=== PATIENT | male | born 1955 | race Caucasian/White ===

== ENCOUNTER 2019-11-28 07:37 | Outpatient (CLI) | payer OTHER, SELFPAY ==
--- NOTE | 2019-11-28 08:00 | CT_ITS ---
WS: [id number] CT scan of the abdominal aorta and arteries of the lower extremities.. Additional two-dimensional cor onal and sagittal reconstruction was performed. MIP images were also performed. 11/28/2019 Clinical Data: PVD bilateral lower extremities/AAA Comparison: None. DLP: 3977.[address] scans at [facility] use at least one of these dose optimization techniques: automat ed exposure control; mA and/or kV adjustment per patient size (includes targeted exams where dose is matched to clinical indication); or iterative reconstruction. Findings: The abdominal aorta is completely obstructed in its midportion just below the level of the renal pina coni. The superior mesenteric and celiac arteries show flow and then there is collateral circulation via mesenteric arteries and small arteries of the anterior abdomen. The common femoral arteries fill via collateral circulation from a small arteries of the anterior abdomen. There is an abdominal aorti c aneurysm measuring 3.22 cm but there is complete thrombus throughout the aneurysm with no flow. The superficial femoral arteries are small and there is severe stenosis in their mid portions. Then veronika ateral circulation fills the distal superficial femoral arteries, popliteal arteries and arteries of the trifurcation. The leg arteries show flow down to the level of the feet. CT abdomen and pelvis: The lower lungs show no nodules, masses or effusions. The liver, spleen, gallbladder, pancreas and ad renal glands show no abnormalities. Kidneys show good circulation with no cysts, masses, hydronephros is or renal calculi. The stomach, small bowel and colon show no abnormalities. No appendicitis or div erticulitis is seen. No abscess, adenopathy, ascites, mass, obstruction or free air is seen. The blad john fills well. The prostate is enlarged. No inguinal hernia is seen. Degenerative change and osteopo rosis of all the lumbar vertebral bodies is noted. There is degenerative disc narrowing at L4-L5. CT/CT angio abd aorta runof 40111 Impression: 1. Complete obstruction of the abdominal aorta below the level of the renal art eries. 2. Collateral circulation via the superior mesenteric artery and the celiac art radha via mesenteric arteries and arteries of the anterior abdominal wall reconst itute the flow into the common femoral arteries. 3. Peripheral vascular disease with narrowing of the midportion of the superfic ial femoral arteries and reconstitution of flow via collateral circulation in t he thigh from the distal superficial femoral arteries, popliteal arteries and a rteries of the trifurcation. 4. Abdominal aortic aneurysm measuring 3.22 cm.
[2019-11-28 08:34] LABS: Blood Urea Nitrogen 16 mg/dL (8-23); Glomerular Filtration Rate 75.5 mL/min (90-130)
[2019-11-28] MEDS: iohexol 350 mg/mL 100 mL Btl IV (08:57)
== END 2019-11-28 07:38 | disposition home or self-care (01) ==
PROVIDERS: Family Provider Emergency Medicine Emergency Medical Services; PCP Emergency Medicine Emergency Medical Services; Visit Provider Internal Medicine Cardiovascular Disease
DX: I73.9 Peripheral vascular disease, unspecified (principal); I71.4 Abdominal aortic aneurysm, without rupture
CPT/HCPCS: 75635; 82565; 84520

== ENCOUNTER 2022-03-10 06:34 | Day surgery (SDC) | payer OTHER, SELFPAY ==
[2022-03-06 10:42] VITALS: BMI 31.1
[2022-03-10 06:55] VITALS: BP 139/82; PULSE 83; RESP 18; TEMP 37.1; O2SAT 95
[2022-03-10] MEDS: sodium chloride 0.9% 1,000 ML 30 ML IV (07:08)
--- NOTE | 2022-03-10 07:38 | P.HP_ITS ---
Same Day Surgery H&P Indication for Procedure/HPI DATE OF PROCEDURE: March 10, 2022 CHIEF COMPLAINT/INDICATIONFOR SURGICAL PROCEDURE: Screening PREOP DIAGNOSIS: Screening PLANNED PROCEDURE: Operation Date: 03/10/22 08:15 Proposed Procedures p Colonoscopy 33306,Z12.11(Not Applicable) - Kyle Escobar MD Medications/Allergies* Home Medications Medication Instructions Recorded Confirmed Type aspirin 81 mg tablet,delayed 81 mg PO DAILY 11/16/19 03/10/22 History release (Adult Low Dose Aspirin) citalopram 40 mg tablet 20 mg PO DAILY 11/16/19 03/10/22 History cyanocobalamin (vitamin B-12) 1,000 mcg PO DAILY 02/20/22 03/10/22 History 1,000 mcg capsule ezetimibe 10 mg tablet 10 mg PO DAILY 02/20/22 03/10/22 History gabapentin 300 mg capsule 300 mg PO TID 02/20/22 03/10/22 History meloxicam 15 mg tablet 15 mg PO DAILY 02/20/22 03/10/22 History omega 5-bay-wef-fish oil 1,000 mg 1 cap PO BID 02/20/22 03/10/22 History (120 mg-180 mg) capsule (Fish Oil) rosuvastatin 40 mg tablet 40 mg PO DAILY 02/20/22 03/10/22 History cholecalciferol (vitamin D3) 50 50 mcg PO DAILY 03/06/22 03/10/22 History mcg (2,000 unit) tablet (Vitamin D3) furosemide 20 mg tablet (Lasix) 20 mg PO QAM 03/06/22 03/10/22 History potassium chloride 10 mEq 10 meq PO DAILY 03/06/22 03/10/22 History tablet,extended release Allergies/Adverse Reactions Allergy/AdvReac Type Severity Reaction Status Date / Time prazosin Allergy Unknown Unknown Verified 02/20/22 10:04 Current Medications: Generic Name Dose Route Start Last Admin Trade Name Freq PRN Reason Stop Dose Admin Sodium Chloride 1,000 mls @ 30 mls/hr 03/10/22 06:45 03/10/22 07:08 Sodium Chloride 0.9% IV 03/11/22 06:44 30 mls/hr .Q24H LEXIE Administration Pertinent History/Comorbid Conditions* Medical History (Updated 02/20/22 @ 10:33 by Kyle Escobar MD) AAA (abdominal aortic aneurysm) without rupture Lower extremity edema Osteoarthritis PVD (peripheral vascular disease) Family History (Updated 11/16/19 @ 15:48 by Lyndsey Wong RN) Diabetes Myocardial infarction Mother Social History Smoking and tobacco status: current every day smoker cigarettes History of recent travel: No Pertinent Exam Findings alert, oriented x 3, clear to auscultation bilaterally, regular rate & rhythm, operative site marked and procedure specific exam findings Recommendations Surgery/Procedure today Coding Level of Care Code Acute Edging Machine Feeder for Omari Panchal
--- NOTE | 2022-03-10 08:00 | ANES.PREANE2 ---
Pre-Anesthetic Assessment Height/Weight: Height 1.88 m Weight 110.223 kg Temp Pulse Resp BP Pulse Ox 98.8 F 83 18 139/82 95 03/10/22 06:55 03/10/22 06:55 03/10/22 06:55 03/10/22 06:55 03/10/22 06:55 Preop Diagnosis: Screening Operation Date: 03/10/22 08:15 Proposed Procedures p Colonoscopy 07796,Z12.11(Not Applicable) - Kyle Escobar MD Familial anesthetic complications: None Last intake: Intake Last Liquid Date 03/09/22 Last Liquid Time 23:30 Last Solid Date 03/08/22 Last Solid Time 19:00 Social Tobacco and No alcohol Exam alert, oriented x 3 and regular rate & rhythm Airway Submandibular: within normal limits Cervical ROM: within normal limits Mallampati: Class II Dentition: full Pulmonary Chronic Obstructive Pulmonary Disease CV/HEM Peripheral Vascular Disease (AAA) Metabolic Morbid Obesity Anesthetic Plan ASA status: 3 Anesthesia: MAC Medications/Allergies Home Medications Medication Instructions Recorded Confirmed Last Taken Type aspirin 81 mg tablet,delayed 81 mg PO DAILY 11/16/19 03/10/22 03/09/22 08:00 History release (Adult Low Dose Aspirin) citalopram 40 mg tablet 20 mg PO DAILY 11/16/19 03/10/22 03/09/22 History cyanocobalamin (vitamin B-12) 1,000 mcg PO DAILY 02/20/22 03/10/22 03/09/22 History 1,000 mcg capsule ezetimibe 10 mg tablet 10 mg PO DAILY 02/20/22 03/10/22 03/09/22 History gabapentin 300 mg capsule 300 mg PO TID 02/20/22 03/10/22 03/09/22 History meloxicam 15 mg tablet 15 mg PO DAILY 02/20/22 03/10/22 03/09/22 History omega 8-nkk-yty-fish oil 1,000 mg 1 cap PO BID 02/20/22 03/10/22 03/09/22 History (120 mg-180 mg) capsule (Fish Oil) rosuvastatin 40 mg tablet 40 mg PO DAILY 02/20/22 03/10/22 03/09/22 History cholecalciferol (vitamin D3) 50 50 mcg PO DAILY 03/06/22 03/10/22 03/09/22 History mcg (2,000 unit) tablet (Vitamin D3) furosemide 20 mg tablet (Lasix) 20 mg PO QAM 03/06/22 03/10/22 03/09/22 History potassium chloride 10 mEq 10 meq PO DAILY 03/06/22 03/10/22 03/09/22 History tablet,extended release Allergies Allergy/AdvReac Type Severity Reaction Status Date / Time prazosin Allergy Unknown Unknown Verified 02/20/22 10:04 Current Medications Generic Name Dose Route Start Last Admin Trade Name Davidq PRN Reason Stop Dose Admin Sodium Chloride 1,000 mls @ 30 mls/hr 03/10/22 06:45 03/10/22 07:08 Sodium Chloride 0.9% IV 03/11/22 06:44 30 mls/hr .Q24H LEXIE Administration PFSH Anesthesia Medical History AAA (abdominal aortic aneurysm) without rupture Lower extremity edema Osteoarthritis PVD (peripheral vascular disease) Family History Mother Myocardial infarction Other Diabetes Social History Smoking and tobacco status: current every day smoker cigarettes History of recent travel: No Data Anesthesia Cardiac Studies: No Data to Display
[2022-03-10 08:51] VITALS: BP 131/81; PULSE 77; RESP 13; TEMP 36.4; O2SAT 94
[2022-03-10 09:01] VITALS: BP 123/73; PULSE 72; RESP 14; O2SAT 95
[2022-03-10 09:10] VITALS: BP 127/80; PULSE 75; RESP 16; O2SAT 94
--- NOTE | 2022-03-10 13:50 | ANE.PACU2 ---
Inpatient post-anesthesia follow up: Airway intact: Yes Vital signs: Temperature 97.5 F Pulse Rate 75 Respiratory Rate 16 Blood Pressure 127/80 Pulse Oximetry 94 Oxygen Delivery Me thod Room Air Oxygen Flow Rate 4 Fraction of Inspir ed Oxygen Hydration adequate: Yes Nausea and vomiting: No Pain level: 1 Mental status: Baseline
== END 2022-03-10 09:20 | disposition home or self-care (01) ==
PROVIDERS: PCP Emergency Medicine Emergency Medical Services; Visit Provider Internal Medicine
PROC: 0DJD8ZZ Inspection of Lower Intestinal Tract, Via Natural or Artificial Opening Endoscopic (ICD-10-PCS; CPT 45378; principal; 2022-03-10 08:15)
DX: Z12.11 Encounter for screening for malignant neoplasm of colon (principal); Z79.82 Long term (current) use of aspirin; M19.90 Unspecified osteoarthritis, unspecified site; F17.210 Nicotine dependence, cigarettes, uncomplicated; J44.9 Chronic obstructive pulmonary disease, unspecified; I73.9 Peripheral vascular disease, unspecified; E66.01 Morbid (severe) obesity due to excess calories; Z68.31 Body mass index [BMI] 31.0-31.9, adult
CPT/HCPCS: G0121; J2704; J7030

== ENCOUNTER → 2022-06-20 11:09 | Outpatient (BNVA) | payer OTHER, SELFPAY | PROVIDERS: PCP Emergency Medicine Emergency Medical Services; Visit Provider Internal Medicine Cardiovascular Disease | DX: R60.0 Localized edema (principal); I73.9 Peripheral vascular disease, unspecified; F17.210 Nicotine dependence, cigarettes, uncomplicated | CPT/HCPCS: 99213; 99214 ==

== ENCOUNTER 2022-07-02 15:39 | Outpatient (CLI) | payer OTHER, SELFPAY ==
--- NOTE | 2022-07-02 16:08 | CT_ITS ---
WS: [id number] CT CHEST WITH INTRAVENOUS CONTRAST HISTORY: PULMONARY NODULE TECHNIQUE: Contiguous 5 mm axial imaging performed on the thorax. Coronal and sagittal reformats are submitted. All CT scans at [facility] use at least one of these dose optimization techniques: automated exposure control; mA and/or kV adjustment per patient size (includes targeted exams where dose is matched to clinical indication); or iterative reconstruction. CONTRAST: Omnipaque 350; 95 mL IV. DLP: 839.62 mGy.cm COMPARISON: No similar studies. Lungs and central airway: 7 mm noncalcified nodule LEFT upper lobe abuts the superior major fissure. 9 mm pulmonary nodule LEFT upper lobe abuts the mid fissure. There is an additional 6 mm anterior LEF T upper lobe nodule abutting the pleura. Benign 8 mm granuloma RIGHT lower lobe. No pneumonia. Mild e mphysema. Pleura: Normal. No pleural effusion. Heart and pericardium: Normal size heart with no pericardial effusion. Mediastinum and cristobal: No mediastinum or hilar adenopathy. Vessels: Very mild atherosclerosis aorta. Normal size pulmonary artery. Atherosclerotic plaque in the proximal LEFT subclavian artery. At least 60% stenosis estimated. Chest wall and lower neck: No soft tissue masses. Upper abdomen: Small hiatal hernia. No adrenal mass. Osseous structures: Mild straightening of the normal lumbar lordosis. No osteoblastic or osteolytic b one disease. CT/CT chest w con* [id number] IMPRESSION: 1. LEFT upper lobe noncalcified pulmonary nodules. No prior studies are availa ble to evaluate for long-term stability or change. Recommend follow-up chest CT in 3 months. 2. No hilar adenopathy. 3. Proximal LEFT subclavian artery stenosis estimated at 60%. 4. Mild emphysema.
[2022-07-02 16:57] LABS: Blood Urea Nitrogen 12 mg/dL (8-23); Glomerular Filtration Rate 74.8 mL/min (90-130)
[2022-07-02] MEDS: iohexol 350 mg/mL 100 mL Btl IV (17:05)
== END 2022-07-02 15:40 | disposition home or self-care (01) ==
PROVIDERS: PCP Emergency Medicine Emergency Medical Services; Visit Provider Emergency Medicine Emergency Medical Services
DX: R91.8 Other nonspecific abnormal finding of lung field (principal); J43.9 Emphysema, unspecified
CPT/HCPCS: 71260; 82565; 84520

== ENCOUNTER 2022-08-20 08:17 | Outpatient (CLI) | payer OTHER, SELFPAY ==
--- NOTE | 2022-08-20 08:30 | USCV_ITS ---
John Duncan Age: 67 Gender: M : 1955 Exam Date: 08/20/2022 08:47 Ordering Phys: Trish Powers MD ([email or web address]) Technologist: Nghia Obrien Exam Location: [facility] [place] Indication: SOB BP: 140 / 86 HR: 73 Rhythm: Sinus Technical Quality: Adequate MEASUREMENTS (Male / Female) Normal Values 2D ECHO LV Diastolic Diameter PLAX 3.1 cm 4.2 - 5.9 / 3.9 - 5.3 cm LV Systolic Diameter PLAX 2.2 cm IVS Diastolic Thickness 1.2 cm 0.6 - 1.0 / 0.6 - 0.9 cm IVS Systolic Thickness 1.4 cm LVPW Diastolic Thickness 1.1 cm 0.6 - 1.0 / 0.6 - 0.9 cm LVPW Systolic Thickness 1.9 cm LVOT Diameter 2.0 cm LV Ejection Fraction 2D Teich 55.1 % LV Ejection Fraction MOD 2C 68.3 % LV Ejection Fraction 2C AL 68.0 % LA Diameter 3.3 cm LA Width 3.3 cm LA Height 4.6 cm RA Width 2.9 cm RA Height 4.4 cm Aorta at Sinotubular Diameter 3.0 cm IVC Diameter 2.0 cm M-MODE Aortic Annulus Diameter 3.7 cm LA Ao Ratio MM 1.0 MV E Point Septal Separation 0.7 cm DOPPLER AV Peak Velocity 132.7 cm/s LVOT Peak Velocity 119.0 cm/s AV Area Cont Eq vti 3.0 cm squared AV Area Cont Eq pk 2.8 cm squared MV Peak Velocity 123.0 cm/s MV Area PHT 5.9 cm squared Mitral E to A Ratio 0.8 MV E' Velocity 43.5 cm/s Mitral E to MV E' Ratio 8.7 Mitral E to LV E' Lateral Ratio 8.6 Mitral E to LV E' Septal Ratio 8.8 TR Peak Velocity 193.5 cm/s TR Peak Gradient 15.0 mmHg TR Mean Velocity 163.2 cm/s TR Mean Gradient 11.8 mmHg TR Velocity Time Integral 48.0 cm Right Atrial Pressure 3.0 mmHg Pulmonary Artery Systolic Pressu 18.0 mmHg PV Peak Velocity 98.0 cm/s RV Acceleration Time 0.1 s RV Ejection Time 0.3 s RV AcT/ET 0.3 FINDINGS Left Ventricle Normal left ventricular size and systolic function, EF 72 %. No regional wall motion abnormalities. Mild left ventricular hypertrophy. Grade I/IV diastolic dysfunction (abnormal relaxation filling pattern), normal to mildly elevated filling pressures. Right Ventricle The right ventricle is normal in size and function. Right Atrium The right atrium is normal in size. Left Atrium The left atrium is normal in size. Mitral Valve Trace mitral valve regurgitation. Aortic Valve No gross abnormalities noted Tricuspid Valve Trace tricuspid valve regurgitation. Pulmonic Valve Pulmonic valve not well visualized. Pericardium Normal pericardium without effusion. Aorta Normal ascending aorta dimension. IVC The inferior vena cava appears normal. CONCLUSIONS Normal left ventricular size and systolic function, EF 72 %. No regional wall motion abnormalities. Mild left ventricular hypertrophy. Grade I/IV diastolic dysfunction (abnormal relaxation filling pattern), normal to mildly elevated filling pressures. Trace tricuspid valve regurgitation. Estimated pulmonary artery peak systolic pressure within normal limits Trace mitral valve regurgitation. There is no pericardial effusion. There are no intracardiac masses. No similar previous studies are available for comparison Dr Madhu Barlow MD FACC (Electronically Signed) Final Date: 21 August 2022 08:19 S
== END 2022-08-20 08:18 | disposition home or self-care (01) ==
LOC: RAD 08:20
PROVIDERS: PCP Emergency Medicine Emergency Medical Services; Visit Provider Internal Medicine Cardiovascular Disease
DX: R06.02 Shortness of breath (principal); R07.9 Chest pain, unspecified; I08.1 Rheumatic disorders of both mitral and tricuspid valves
CPT/HCPCS: 93306

== ENCOUNTER 2022-10-10 14:47 | Outpatient (CLI) | payer OTHER, SELFPAY ==
--- NOTE | 2022-10-10 15:06 | CT_ITS ---
WS: [id number] CT CHEST WITH INTRAVENOUS CONTRAST HISTORY: 3 MONTH FOLLOW UP TECHNIQUE: Contiguous 5 mm axial imaging performed on the thorax. Coronal and sagittal reformats are submitted. All CT scans at [facility] use at least one of these dose optimization techniques: automated exposure control; mA and/or kV adjustment per patient size (includes targeted exams where dose is matched to clinical indication); or iterative reconstruction. CONTRAST: Omnipaque 350; 95 mL IV. DLP: 581.70 mGy.cm COMPARISON: 07/02/2022 Lungs and central airway: Increase in size of the soft tissue nodularity LEFT upper lobe abutting the fissure. This nodule now measures 15 x 11 mm and extends over a length of 27 mm. On the prior examin ation this nodule had a maximum diameter of 7 mm. The additional nodules in the LEFT upper lobe have resolved. Benign granuloma RIGHT lower lobe is stable. Single micronodule RIGHT lower lobe is stable. Pleura: Normal. No pleural effusion. Heart and pericardium: Normal size heart with no pericardial effusion. Mediastinum and cristobal: No mediastinum or hilar adenopathy. Vessels: Minimal atherosclerosis aorta. No aneurysm. Normal pulmonary artery. Chest wall and lower neck: No soft tissue masses. Upper abdomen: Visualized liver is negative. Normal adrenal glands. Osseous structures: Dorsal column stimulator electrodes in the midthoracic region. CT/CT chest w con* [id number] IMPRESSION: 1. Increase in size LEFT upper lobe pulmonary nodule now measuring 15 x 11 mm and extends over a length of 27 mm. This nodule needs to be evaluated for early pulmonary neoplasm. Recommend follow-up PET/CT imaging. Differential also incl udes inflammatory disease with adjacent atelectasis. 2. The additional previously described subcentimeter nodules in the LEFT lung have resolved. 3. No adenopathy. 4. Again noted is a proximal LEFT subclavian artery stenosis with focal ulcera gina plaque.
[2022-10-10] MEDS: iohexol 350 mg/mL 500 mL Btl (per mL) IV (15:43)
== END 2022-10-10 14:48 | disposition home or self-care (01) ==
PROVIDERS: PCP Emergency Medicine Emergency Medical Services; Visit Provider Emergency Medicine Emergency Medical Services
DX: Z01.89 Encounter for other specified special examinations (principal); R91.1 Solitary pulmonary nodule
CPT/HCPCS: 71260; Q9967

== ENCOUNTER → 2022-10-17 10:52 | Outpatient (BNVA) | payer OTHER, SELFPAY | PROVIDERS: PCP Emergency Medicine Emergency Medical Services; Visit Provider Internal Medicine Cardiovascular Disease | DX: R60.0 Localized edema (principal); I73.9 Peripheral vascular disease, unspecified; Z98.890 Other specified postprocedural states; F41.9 Anxiety disorder, unspecified; M19.90 Unspecified osteoarthritis, unspecified site; F17.210 Nicotine dependence, cigarettes, uncomplicated | CPT/HCPCS: 99214; Q3014 ==

== ENCOUNTER 2023-01-24 06:22 | Outpatient (CLI) | payer OTHER, SELFPAY ==
--- NOTE | 2023-01-24 | PETR_ITS ---
PROCEDURE INFORMATION: Exam: PET/CT Skull Base to Mid-thigh Exam date and time: 01/24/2023 12:01 PM Age: 67 years old Clinical indication: Abnormal findings on CT 10/10/22 (left upper lobe elongated opacity). LABS AND CLINICAL REPORTS: Glucose: 111 mg/dl Treatment strategy for malignancy (PET staging): Initial Staging (PI) TECHNIQUE: Imaging protocol: Following at least four-hour fasting and following the injection of radiopharmaceutical, low dose CT images were obtained. Then, PET images were obtained. Attenuation corrected images were constructed using the CT scan. Fused images of PET and CT were reviewed. The standardized uptake values (SUV) reported below are maximum values within a region of interest, expressed in gm/ml. Exam includes orbital meatal line to mid-thigh. Radiopharmaceutical: 13.48 mCi F-18 FDG (Fluorodeoxyglucose), IV. Time of imaging post radiopharmaceutical administration: 1 hour Injection site: Left antecubital vein COMPARISON: CT chest w con 10/10/2022 and 07/02/2022 FINDINGS: Brain: Visualized brain has normal physiologic uptake. Pharynx: No abnormal uptake. Larynx: No abnormal uptake. Lungs, pleura and trachea: No abnormal uptake. No suspicious nodules or masses. Elongated opacity posteriorly in the left upper lobe documented on 10/10/2022 has resolved compatible with benign finding of atelectasis. There is no residual nodule in the corresponding location of this opacity to correlate with the nodule documented on the older exam on 07/02/2022. There is stable 8 mm calcified granuloma in the right lower lobe. Minimal centrilobular emphysema in the upper lobes. no pleural effusion. Heart: Normal physiologic uptake. No cardiomegaly. Coronary artery calcification is present. There is no pericardial effusion. Mediastinal space: No abnormal uptake. Liver: No abnormal uptake. Gallbladder and bile ducts: No abnormal uptake. No calcified gallstones. Pancreas: No abnormal uptake. Spleen: No abnormal uptake. No splenomegaly. Adrenal glands: No abnormal uptake. No nodules. Kidneys and ureters: Normal physiologic uptake. No hydronephrosis. Stomach and bowel: No abnormal uptake. Vasculature: No abnormal uptake. Status post aortobifemoral bypass surgery. Lymph nodes: No abnormal uptake. No lymphadenopathy in the head, neck, chest, abdomen, pelvis, and extremities. Stable sequela of exposure to granulomatous disease with small calcified right subcarinal and right hilar lymph nodes. Bones/joints: No abnormal uptake in the visualized axial and appendicular skeleton. Soft tissues: Bilateral symmetric linear uptake in the deep fat planes in the suboccipital region and the upper posterior neck, in the upper back and in the medial intercostal/paravertebral fat at multiple levels is compatible with benign uptake in the brown fat. Focal soft tissue density in the umbilicus for clinical correlation with history of umbilical hernia repair. 2.3 cm subcutaneous cyst in the right upper back on image 25 represents benign finding (epidermal inclusion cyst or sebaceous cyst). Catheters, tubes and devices: There is intraspinal stimulation electrode placed via T11-T12 interspinous interval terminating within the central spinal canal in the epidural space at T7 level. PET/PET skulltothi INITIAL [id number] IMPRESSION: No evidence of malignancy. Linear opacity in the left upper lobe documented on prior CT chest on 10/10/2022 has resolved compatible with benign finding of atelectasis.
== END 2023-01-24 06:23 | disposition home or self-care (01) ==
LOC: RAD 01-26 06:22
PROVIDERS: PCP Emergency Medicine Emergency Medical Services; Visit Provider Emergency Medicine Emergency Medical Services
DX: R91.8 Other nonspecific abnormal finding of lung field (principal)
CPT/HCPCS: 78815; A9552

== ENCOUNTER → 2023-01-29 07:52 | Outpatient (BNVA) | payer OTHER, SELFPAY | PROVIDERS: PCP Emergency Medicine Emergency Medical Services; Visit Provider Podiatrist Foot & Ankle Surgery | DX: I73.9 Peripheral vascular disease, unspecified (principal); L60.8 Other nail disorders; Z98.62 Peripheral vascular angioplasty status; L60.3 Nail dystrophy | CPT/HCPCS: 11721; 93923; 99204 ==

== ENCOUNTER → 2023-03-19 08:50 | Outpatient (BNVA) | payer OTHER, SELFPAY | PROVIDERS: PCP Emergency Medicine Emergency Medical Services; Visit Provider Internal Medicine Pulmonary Disease | DX: R91.1 Solitary pulmonary nodule (principal); F17.210 Nicotine dependence, cigarettes, uncomplicated; J43.9 Emphysema, unspecified | CPT/HCPCS: 99204; 99214 ==

== ENCOUNTER → 2023-04-09 08:23 | Outpatient (BNVA) | payer OTHER, SELFPAY | PROVIDERS: PCP Emergency Medicine Emergency Medical Services; Visit Provider Podiatrist Foot & Ankle Surgery | DX: I73.9 Peripheral vascular disease, unspecified (principal); L60.8 Other nail disorders; L60.3 Nail dystrophy; Z98.62 Peripheral vascular angioplasty status | CPT/HCPCS: 11721 ==

== ENCOUNTER → 2023-04-17 10:20 | Outpatient (BNVA) | payer OTHER, SELFPAY | PROVIDERS: PCP Emergency Medicine Emergency Medical Services; Visit Provider Internal Medicine Cardiovascular Disease | DX: R60.0 Localized edema (principal); F17.210 Nicotine dependence, cigarettes, uncomplicated | CPT/HCPCS: 99214 ==

== ENCOUNTER → 2023-05-20 10:58 | Outpatient (BNVA) | payer OTHER, SELFPAY | PROVIDERS: PCP Emergency Medicine Emergency Medical Services; Visit Provider Internal Medicine Pulmonary Disease | DX: R91.1 Solitary pulmonary nodule (principal); J43.9 Emphysema, unspecified | CPT/HCPCS: 99214 ==

== ENCOUNTER → 2023-06-11 15:19 | Outpatient (BNVA) | payer OTHER, SELFPAY | PROVIDERS: PCP Emergency Medicine Emergency Medical Services; Visit Provider Podiatrist Foot & Ankle Surgery | DX: L60.8 Other nail disorders (principal); I73.9 Peripheral vascular disease, unspecified; Z98.62 Peripheral vascular angioplasty status; L60.3 Nail dystrophy | CPT/HCPCS: 11721 ==

== ENCOUNTER → 2023-09-08 07:52 | Outpatient (BNVA) | payer OTHER, SELFPAY | PROVIDERS: PCP Emergency Medicine Emergency Medical Services; Visit Provider Podiatrist Foot & Ankle Surgery | DX: I73.9 Peripheral vascular disease, unspecified (principal); L60.8 Other nail disorders; Z98.62 Peripheral vascular angioplasty status; L60.3 Nail dystrophy | CPT/HCPCS: 11721 ==

== ENCOUNTER 2023-12-28 11:45 | Outpatient (RCR) | payer OTHER, SELFPAY | END 2024-01-26 23:59 | disposition home or self-care (01) | LOC: CR 11:45 | PROVIDERS: PCP Emergency Medicine Emergency Medical Services; Referring Provider Emergency Medicine Emergency Medical Services; Visit Provider Emergency Medicine Emergency Medical Services | DX: I73.9 Peripheral vascular disease, unspecified (principal) | CPT/HCPCS: 93798 ==

== ENCOUNTER → 2024-01-12 07:44 | Outpatient (BNVA) | payer OTHER, SELFPAY | PROVIDERS: PCP Emergency Medicine Emergency Medical Services; Visit Provider Podiatrist Foot & Ankle Surgery | DX: I73.9 Peripheral vascular disease, unspecified (principal); L60.8 Other nail disorders; Z98.62 Peripheral vascular angioplasty status; L60.3 Nail dystrophy | CPT/HCPCS: 11721 ==

== ENCOUNTER 2024-01-27 10:25 | Outpatient (RCR) | payer OTHER, SELFPAY | END 2024-02-26 23:59 | disposition home or self-care (01) | LOC: CR 10:25 | PROVIDERS: PCP Emergency Medicine Emergency Medical Services; Referring Provider Emergency Medicine Emergency Medical Services; Visit Provider Emergency Medicine Emergency Medical Services | DX: I73.9 Peripheral vascular disease, unspecified (principal) | CPT/HCPCS: 93798 ==

== ENCOUNTER → 2024-02-17 10:55 | Outpatient (BNVA) | payer OTHER, SELFPAY | PROVIDERS: PCP Emergency Medicine Emergency Medical Services; Visit Provider Surgery | DX: L72.0 Epidermal cyst (principal) | CPT/HCPCS: 99203 ==

== ENCOUNTER 2024-02-29 08:52 | Outpatient (RCR) | payer OTHER, SELFPAY | END 2024-03-27 23:59 | disposition home or self-care (01) | LOC: CR 08:52 | PROVIDERS: PCP Emergency Medicine Emergency Medical Services; Referring Provider Emergency Medicine Emergency Medical Services; Visit Provider Emergency Medicine Emergency Medical Services | DX: I73.9 Peripheral vascular disease, unspecified (principal) | CPT/HCPCS: 93798 ==

== ENCOUNTER 2024-03-14 05:33 | Day surgery (SDC) | payer OTHER, SELFPAY ==
[2024-03-14] VITALS (11 sets, daily range): BP systolic 128–166; BP diastolic 73–93; PULSE 61–78; RESP 14–21; TEMP 36.1–36.4; O2SAT 91–95; BMI 29.4
--- NOTE | 2024-03-14 05:39 | P.HPUD_ITS ---
Surgery/Procedure H&P Update DATE OF PROCEDURE: March 14, 2024 DATE H&P PERFORMED: 01/27/22 H&P UPDATE INFORMATION: I have reviewed H&P completed within last 30 days, I have examined patient prior to procedure, No changes to prior documentation and H&P is in [facility] [place] on date indicated PLANNED PROCEDURE: Operation Date: 03/14/24 07:00 Proposed Procedures p Excision Mass/Lesion/Cyst Upper Torso/ excision upper back mass 18813, L72.0(Not Applicable) - Francisco Moulton MD
--- NOTE | 2024-03-14 06:13 | ECG_ITS ---
[facility] Test Date: 2024-03-14 Pat Name: John Duncan Department: Room: Gender: Male Rn Clinical Trials: : 1955 Requested By: Francisco Cooper Order Number: [id number] Sage MD: Gregory Nj M.D. Measurements Intervals [place] Rate: 59 P: 70 NJ: 162 QRS: 30 QRSD: 106 T: 73 QT: 399 QTc: 398 Interpretive Statements SINUS BRADYCARDIA INCOMPLETE RIGHT BUNDLE BRANCH BLOCK [90+ ms QRS DURATION, TERMINAL R IN V1/V2, 40+ ms S IN I/aVL/V4/V5/V6] No previous ECG available for comparison Electronically Signed On 03-14-2024 8:31:02 CDT by Gregory Nj M.D. [id number]
[2024-03-14] MEDS: sodium chloride 0.9% 1,000 ML 30 ML IV (06:51)
[2024-03-14 06:57] LABS: Anion Gap 15.6 (5-19); Blood Urea Nitrogen 29 mg/dL (8-23); Calcium 9.4 mg/dL (8.5-10.5); Carbon Dioxide 26 mmol/L (22-29); Chloride 104 mmol/L (98-107); Creatinine Clr Calc Pharmacy 102.3681; Glomerular Filtration Rate 84.2 mL/min (90-130); Glucose 111 mg/dL (65-115); Osmolality Calculated 299 mOsm/kg (285-295); Potassium 4.6 mmol/L (3.5-5.1); Sodium 141 mmol/L (136-145)
[2024-03-14] MEDS: ceFAZolin 2,000 MG in sodium chloride 0.9% (plus) 50 ML 100 MG IV (07:05)
--- NOTE | 2024-03-14 07:07 | P.ANESASSM_ITS ---
Pre-Anesthetic Assessment Height/Weight: Height 1.88 m Weight 103.873 kg O2 Del Method Room Air 03/14/24 06:05 Operation Date: 03/14/24 07:00 Proposed Procedures p Excision Mass/Lesion/Cyst Upper Torso/ excision upper back mass 19298, L72.0(Not Applicable) - Francisco Moulton MD Familial anesthetic complications: None Was Beta Andi taken within 24 hours: N/A Was Clonidine taken within 24 hours: N/A Last intake: Intake Last Liquid Date 03/13/24 Last Liquid Time 20:50 Last Solid Date 03/13/24 Last Solid Time 18:00 Social Tobacco and No alcohol Exam alert, oriented x 3, clear to auscultation bilaterally and regular rate & rhythm Airway Mallampati: Class III Dentition: caps and partials Pulmonary Chronic Obstructive Pulmonary Disease CV/HEM Peripheral Vascular Disease AAA s/p repair Metabolic Hyperlipidemia Anesthetic Plan ASA status: 3 Anesthesia: General Risk of > 500 ml blood loss (7ml/kg in children): No Medications/Allergies Home Medications Medication Instructions Recorded Confirmed Last Taken Type aspirin 81 mg tablet,delayed 81 mg PO DAILY 11/16/19 03/14/24 03/11/24 History release (Adult Low Dose Aspirin) citalopram 40 mg tablet 20 mg PO DAILY 11/16/19 03/14/24 03/11/24 History cyanocobalamin (vitamin B-12) 1,000 mcg PO DAILY 02/20/22 03/14/24 03/11/24 History 1,000 mcg capsule ezetimibe 10 mg tablet 10 mg PO DAILY 02/20/22 03/14/24 03/11/24 History gabapentin 300 mg capsule 300 mg PO TID 02/20/22 03/14/24 03/11/24 History meloxicam 15 mg tablet 15 mg PO DAILY 02/20/22 03/14/24 03/11/24 History omega 9-div-rnd-fish oil 1,000 mg 1 cap PO BID 02/20/22 03/14/24 03/11/24 History (120 mg-180 mg) capsule (Fish Oil) cholecalciferol (vitamin D3) 50 50 mcg PO DAILY 03/06/22 03/14/24 03/11/24 History mcg (2,000 unit) tablet (Vitamin D3) omeprazole 40 mg capsule,delayed 40 mg PO BID 06/20/22 03/14/24 03/11/24 History release ropinirole 0.5 mg tablet 0.5 mg PO TID 06/20/22 03/14/24 03/10/24 History furosemide 20 mg tablet (Lasix) 20 mg PO QAM #90 tabs 08/26/22 03/14/24 03/11/24 Rx potassium chloride 10 mEq 10 meq PO DAILY #90 tabs 08/26/22 03/14/24 03/11/24 Rx tablet,extended release urea 40 % topical cream 1 applic topical TID #198 grams 01/29/23 03/14/24 03/07/24 Rx tiotropium bromide 18 mcg capsule 1 cap inhalation DAILY #60 03/19/23 03/14/24 03/11/24 Rx with inhalation device (Spiriva inhalations with HandiHaler) rosuvastatin 40 mg tablet 40 mg PO DAILY #90 tabs 11/04/23 03/14/24 03/10/24 Rx Allergies Allergy/AdvReac Type Severity Reaction Status Date / Time prazosin Allergy Unknown Unknown Verified 02/17/24 11:00 Current Medications Generic Name Dose Route Start Last Admin Trade Name Freq PRN Reason Stop Dose Admin Sodium Chloride 1,000 mls @ 30 mls/hr 03/14/24 06:45 03/14/24 06:51 Sodium Chloride 0.9% IV 03/15/24 06:44 30 mls/hr .Q24H LEXIE Administration PFSH Anesthesia Medical History Anxiety History of traumatic brain injury PTSD (post-traumatic stress disorder) RLS (restless legs syndrome) Lower extremity edema Osteoarthritis AAA (abdominal aortic aneurysm) without rupture PVD (peripheral vascular disease) Surgical History S/P cervical spinal fusion S/P hernia repair S/P aorta repair S/P insertion of spinal cord stimulator Family History Mother Myocardial infarction Other Diabetes Social History Smoking and tobacco/nicotine status: current every day tobacco/nicotine user cigarettes Data Anesthesia 03/14/24 06:18 BMP 03/14/24 06:18 Sodium 141 Potassium 4.6 Chloride 104 Carbon Dioxide 26 BUN 29 H Creatinine 0.9 Glucose 111 Calcium 9.4 Cardiac Studies: 2 Echocardiogram 08/20/22
[2024-03-14] MEDS: BUPivacaine 0.25% INJ 30 mL INJECTION (07:30)
[2024-03-14] MEDS: lidocaine-epi 1% 20 mL INJ INJECTION (07:30)
--- NOTE | 2024-03-14 08:08 | PM.OP ---
Operative Report Date of procedure: March 14, 2024 Pre-op diagnosis: Right upper back mass Post-op diagnosis: Same Post-op findings: There was a subcutaneous right upper back mass measuring about 3.5 cm x 3 cm x 2 cm Procedure done: Excision of right upper back mass Surgeon: Francisco Moulton MD Front Office Administrator: JEFFREY OR Staff Estimated blood loss: 5 Complications: None apparent Brief History: This a 68-year-old male with right upper back mass who presented to my clinic for excision. After discussion of the risk and benefits as documented my preop note we decided to proceed. Procedure: Patient was brought into the OR. General anesthesia was given. He was placed in a left lateral position. The right upper back was prepped and draped in the usual sterile fashion. Timeout was conducted. Local anesthesia was infiltrated around the mass. An elliptical incision measuring about 4.5 cm was made in the area of the mass. The incision was deepened to subcutaneous tissue with a blade, I then proceeded to circumferentially dissect the mass from the subcutaneous tissue with sharp dissection, taking careful consideration of not entering the capsule of the lesion. The mass was completely excised and sent to pathology. Hemostasis was achieved, the wound was irrigated with saline. The wound was then closed in layers using #2-0 Vicryl for the deep tissue, #3-0 Vicryl for the subcutaneous tissue and #3-0 nylon for the skin. Sterile dressing was then applied. A compressive dressing was applied on top. At the end of the procedure all counts were correct, the patient tolerated well the procedure and was transferred to the PACU in stable condition.
--- NOTE | 2024-03-14 09:10 | ANE.PACU2 ---
Inpatient post-anesthesia follow up: Airway intact: Yes Vital signs: Temperature 97 F Pulse Rate 63 Respiratory Rate 18 Blood Pressure 144/80 Pulse Oximetry 95 Oxygen Delivery Me thod Room Air Oxygen Flow Rate Fraction of Inspir ed Oxygen Hydration adequate: Yes Nausea and vomiting: No Pain level: 1 Mental status: Baseline
== END 2024-03-14 09:10 | disposition home or self-care (01) ==
PROVIDERS: PCP Emergency Medicine Emergency Medical Services; Visit Provider Surgery
PROC: (CPT 11404; principal; 2024-03-14 07:00)
DX: L72.0 Epidermal cyst (principal); J44.9 Chronic obstructive pulmonary disease, unspecified; E78.5 Hyperlipidemia, unspecified; Z79.82 Long term (current) use of aspirin; F41.9 Anxiety disorder, unspecified; Z87.820 Personal history of traumatic brain injury; M19.90 Unspecified osteoarthritis, unspecified site; F17.210 Nicotine dependence, cigarettes, uncomplicated
CPT/HCPCS: 11404; 12032; 36415; 80048; 88307; 93005; J0690; J1100; J2371; J2405; J2704; J3010; J3490; J7030

== ENCOUNTER 2024-03-21 09:35 | Outpatient (CLI) | payer OTHER, SELFPAY ==
--- NOTE | 2024-03-21 09:38 | US_ITS ---
WS: [id number] Exam: US pelvic limited [id number] Date/Time of Exam: 03/21/2024 9:41 AM Reason For Exam: L GROIN SWELLING W/ENLARGED LYMPHNODE The LEFT inguinal region is targeted for ultrasound evaluation. There are several fatty replaced lymp h nodes noted in the LEFT inguinal region. The largest node measures about 1.1 cm in greatest short a xis dimension. A single subcentimeter short axis lymph node seen in the RIGHT inguinal region. Recommendations: If the patient does not respond to conservative management, further evaluation with pet imaging might be considered to identify any abnormal metabolic activity in these areas. US/US pelvic limited [id number] IMPRESSION: 1. Several fatty replaced lymph nodes noted in the LEFT inguinal region. The la rgest node measures about 1.1 cm greatest short axis dimension. These nodes do not have suspicious appearance. 2. Single subcentimeter short axis lymph node seen in the RIGHT inguinal region .
== END 2024-03-21 09:36 | disposition home or self-care (01) ==
PROVIDERS: PCP Family Medicine; Visit Provider Family Medicine
DX: R59.0 Localized enlarged lymph nodes (principal)
CPT/HCPCS: 76857

== ENCOUNTER 2024-03-28 14:49 | Outpatient (RCR) | payer OTHER, SELFPAY | END 2024-04-27 23:59 | disposition home or self-care (01) | LOC: CR 14:49 | PROVIDERS: PCP Family Medicine; Referring Provider Emergency Medicine Emergency Medical Services; Visit Provider Emergency Medicine Emergency Medical Services | DX: I73.9 Peripheral vascular disease, unspecified (principal) | CPT/HCPCS: 93798 ==

== ENCOUNTER → 2024-04-06 08:59 | Outpatient (BNVA) | payer OTHER, SELFPAY | PROVIDERS: PCP Family Medicine; Visit Provider Surgery | DX: Z98.890 Other specified postprocedural states (principal) | CPT/HCPCS: 99024 ==

== ENCOUNTER 2024-05-03 16:09 | Outpatient (RCR) | payer OTHER, SELFPAY | END 2024-05-28 23:59 | disposition home or self-care (01) | LOC: CR 16:09 | PROVIDERS: PCP Family Medicine; Referring Provider Emergency Medicine Emergency Medical Services; Visit Provider Emergency Medicine Emergency Medical Services | DX: I73.9 Peripheral vascular disease, unspecified (principal) | CPT/HCPCS: 93798 ==

== ENCOUNTER → 2024-05-10 07:45 | Outpatient (BNVA) | payer OTHER, SELFPAY | PROVIDERS: PCP Family Medicine; Visit Provider Podiatrist Foot & Ankle Surgery | DX: I73.9 Peripheral vascular disease, unspecified (principal); L60.8 Other nail disorders; Z98.62 Peripheral vascular angioplasty status; L60.3 Nail dystrophy | CPT/HCPCS: 11721 ==

== ENCOUNTER 2024-05-29 10:22 | Outpatient (RCR) | payer OTHER, SELFPAY | END 2024-06-27 23:59 | disposition home or self-care (01) | LOC: CR 10:22 | PROVIDERS: PCP Family Medicine; Referring Provider Emergency Medicine Emergency Medical Services; Visit Provider Emergency Medicine Emergency Medical Services | DX: I73.9 Peripheral vascular disease, unspecified (principal) | CPT/HCPCS: 93798 ==

== ENCOUNTER 2024-06-28 12:11 | Outpatient (RCR) | payer OTHER, SELFPAY | END 2024-07-28 23:59 | disposition home or self-care (01) | LOC: CR 12:11 | PROVIDERS: PCP Family Medicine; Referring Provider Emergency Medicine Emergency Medical Services; Visit Provider Emergency Medicine Emergency Medical Services | DX: I73.9 Peripheral vascular disease, unspecified (principal) | CPT/HCPCS: 93798 ==

== ENCOUNTER → 2024-07-26 07:37 | Outpatient (BNVA) | payer OTHER, SELFPAY | PROVIDERS: PCP Family Medicine; Visit Provider Podiatrist Foot & Ankle Surgery | DX: I73.9 Peripheral vascular disease, unspecified (principal); L60.8 Other nail disorders; Z98.62 Peripheral vascular angioplasty status; L60.3 Nail dystrophy | CPT/HCPCS: 11721 ==

== ENCOUNTER → 2024-10-10 07:51 | Outpatient (BNVA) | payer OTHER, SELFPAY | PROVIDERS: PCP Family Medicine; Visit Provider Podiatrist Foot & Ankle Surgery | DX: L60.8 Other nail disorders (principal); I73.9 Peripheral vascular disease, unspecified; Z98.62 Peripheral vascular angioplasty status; L60.3 Nail dystrophy | CPT/HCPCS: 11721 ==

== ENCOUNTER → 2025-01-09 08:27 | Outpatient (BNVA) | payer OTHER, SELFPAY | PROVIDERS: PCP Family Medicine; Visit Provider Podiatrist Foot & Ankle Surgery | DX: I73.9 Peripheral vascular disease, unspecified (principal); L60.8 Other nail disorders; L60.3 Nail dystrophy; Z98.62 Peripheral vascular angioplasty status | CPT/HCPCS: 11721 ==

== ENCOUNTER → 2025-02-07 09:21 | Outpatient (BNVA) | payer OTHER, SELFPAY | PROVIDERS: PCP Family Medicine; Visit Provider Psychiatry & Neurology Neurology | DX: G56.03 Carpal tunnel syndrome, bilateral upper limbs (principal); G62.9 Polyneuropathy, unspecified; G56.21 Lesion of ulnar nerve, right upper limb | CPT/HCPCS: 95913 ==

== ENCOUNTER → 2025-02-28 07:53 | Outpatient (BNVA) | payer OTHER, SELFPAY | PROVIDERS: PCP Family Medicine; Visit Provider Physician Assistant | DX: G56.03 Carpal tunnel syndrome, bilateral upper limbs (principal); G56.23 Lesion of ulnar nerve, bilateral upper limbs | CPT/HCPCS: 73130; 99204 ==

== ENCOUNTER 2025-03-31 14:56 | Emergency (ER) | payer OTHER, MEDICARE, SELFPAY ==
--- OUTSIDE RECORDS SUMMARY | 2025-03-31 15:02 | XMS_ITS | Clinical Summary ---
Author Organization [facility] Address [address] [place] [address] Phone Care Team Providers Care Vp Marketing Name Role Phone George Childress MD Primary Care Provider Allergies Active Allergy Reactions Criticality Noted Date Comments Prazosin Syncope Medium 04/08/2012 Medications aspirin (ECOTRIN EC) 81 mg Tablet, Delayed Release (E.C.) Take 81 mg by mouth daily. Active rosuvastatin (CRESTOR) 40 mg tablet Take 40 mg by mouth daily at bedtime. Active omeprazole (PriLOSEC) 40 mg Capsule, Delayed Release(E.C.) Take 40 mg by mouth daily. Active cholecalcifero l, vitamin D3, 1,000 unit Take 1,000 Units by mouth daily. Active gabapentin (NEURONTIN) 300 mg capsule Take 1 Capsule (300 mg) by mouth 3 times daily. 90 Capsule 3 0 Active furosemide (LASIX) 20 mg tablet Take 1 Tablet by mouth daily. 0 Active potassium chloride (KLOR-CON) 10 mEq Extended Release tablet Take 10 mEq by mouth daily with breakfast. 0 Active Luxor-3 Fatty Acids (Fish Oil Concentrate) 1,000 mg Capsule Take 1,000 mg by mouth 2 times daily. 1 capsule twice a day to lower triglycerides Active sennosides (SENOKOT) 8.6 mg tablet Take 8.6 mg by mouth daily. 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 with rest pain 01/03/2020 Renal artery stenosis 01/03/2020 Superficial femoral artery occlusion 01/03/2020 Popliteal artery aneurysm, bilateral 01/03/2020 H/O back injury in [place] 01/03/2020 Neuropathy 01/03/2020 Seroma, post-traumatic Resolved Problems Problem Noted Date Diagnosed Date Resolved Date Cellulitis 05/11/2020 07/17/2020 AAA (abdominal aortic aneury sm) without rupture 01/03/2020 07/17/2020 Chronic distal aortic occlusion 01/03/2020 07/17/2020 Family History Medical History Relation Name Comments No Known Problems Brother Cancer Daughter No Known Problems Father No Known Problems Maternal Grandfather No Known Problems Maternal Grandmother Cancer Mother No Known Problems Paternal Grandfather No Known Problems Paternal Grandmother No Known Problems Son Relation Name Status Comments Brother Daughter Father Maternal Grandfather Maternal Grandmother Mother Paternal Grandfather Paternal Grandmother Son Social History Tobacco Use Types Packs/Day Years Used Date Smoking Tobacco: Former Cigarettes Q uit: 01/08/2020 Smokeless Tobacco: Former Tobacco Cessation:Ready to Q uit: Yes Alcohol Use Standard Drinks/Week Comments Yes 0 (1 standard drink = 0.6 oz pur e alcohol) occ Sex and Gender Information Value Date Recorded Sex Assigned at Not on file Legal Sex Male 1:21 PM CDT Gender Identity Not on file Sexual Orientation Not on file Last Filed Vital Signs Vital Sign Reading Time Taken Comments Blood Pressure 144/90 03/12/2021 12:20 PM CDT Pulse 66 03/12/2021 12:20 PM CDT Temperature 36.9 C (98.4 F) 05/17/2020 11:21 AM CDT Respiratory Rate 20 06/15/2020 1:20 PM CDT Oxygen Saturation 94% 03/12/2021 12:20 PM CDT Inhaled Oxygen Concentration - - Weight 112.5 kg (248 lb) 03/12/2021 12:20 PM CDT Height 188 cm (6' 2 ) 03/12/2021 12:20 PM CDT Body Mass Index 31.84 03/12/2021 12:20 PM CDT Plan of Treatment Health Maintenance Due Date Last Done Comments COLORECTAL SCREENING 2001 Colorectal Cancer Screening 2001 FIT-DNA Q 3 years 2001 FIT/FOBT Q 1 year 2001 Flex Sig/CT Colonography Q 5 years 2001 ZOSTER VACCINE (1 of 2) 2006 PNEUMOCOCCAL VACCINE 50+ YEA RS (2 of 2 - PCV) 02/28/2016 02/27/2015 INFLUENZA VACCINE (#1) 2024 09/11/2017 DTAP/TDAP/TD VACCINES (2 - Td or Tdap) 03/12/2027, 2016 RSV VACCINE (60+ or ) (1 - 1-dose 75+ series) 2031 Medical Devices Implanted Type Area Tyre Retreader Device Identifier Shelf Expiration Date Model / Serial / Lot Clip Ligating Horizon Lg Ti [id number] - Csc - [id number] Implanted:12/27 by Yunier Hernández MD at [facility] (Quantity not on file) Clip N/A: Aorta TELEFLEX- WECK CLOSURE SYS [id number] 03/08/2024 [id number] / / [id number] Clip Ligating Horizon Med Ti 231854 - Csc - [id number] Implanted:12/27 by Yunier Hernández MD at [facility] (Quantity not on file) Clip N/A: Aorta TELEFLEX- WECK CLOSURE SYS [id number] 01/26/2024 [id number] / / [id number] Clip Ti Lrg 24838 - [id number] Implanted:12/27 by Yunier Hernández MD at [facility] (Quantity not on file) Clip N/A: Abdomen [employer] [id number] 10/29/2021 [id number] / / [id number] Clip Ligating Horizon Med Ti [id number] - Csc - [id number] Implanted:Qty: 1 on 05/13/2020 by Benji Rey MD at [facility] Clip Left: Groin TELEFLEX- WECK CLOSURE SYS [id number] 04/25/2024 [id number] / / [id number] Clip Ligating Horizon Med Ti [id number] - Csc - [id number] Implanted:Qty: 1 on 05/13/2020 by Benji Rey MD at [facility] Clip Left: Groin TELEFLEX- WECK CLOSURE SYS [id number] 04/25/2024 [id number] / / [id number] Hemostatic Surgifoam [id number] - [id number] Implanted:12/27 by Yunier Hernández MD at [facility] (Quantity not on file) Hemostatic N/A: Groin [employer] [id number] 10/04/20231973 / [id number] Graft [place]mshld Gold Bifur [id number] - [id number] Implanted:12/27 by Yunier Hernández MD at [facility] (Quantity not on file) Tissue N/A: Aorta [employer] [id number] 07/28/2024 [id number] / / [id number] Insurance RX [employer] Member Subscriber Plan / Payer (Ef fective for All Dates) Name:John Duncan Relation to Subscriber:Self Name:John Duncan Payer ID:Not on file Type:RX Commercial Address: [address] * Guarantor: BRYAN ANTUNEZ L AND M Account Type Relation to Patient Date of Phone Billing Address Corporate Other [facility] [address] [employer] [address] FEE UNIT Advance Directives For more information, please contact: [phone] Documents on File Type Date Recorded Patient Marketing Liaison Expl anation Advance Directive POA 01/17/2020 11:53 AM Advance Directive POA Advance Directive POA 01/12/2020 12:51 PM * Full Code (Latest Code Status on File) Date Activated Date Inactivated Comments 05/13/2020 9:05 PM 05/17/2020 7:13 PM * Full Code Date Activated Date Inactivated Comments 05/11/2020 5:31 PM 05/13/2020 9:04 PM * Full Code Date Activated Date Inactivated Comments 01/09/2020 6:49 AM 01/09/2020 2:10 PM Care Teams Vp Marketing Relationship Specialty Start Date End Date George Childress MD PCP - General Emergency Medicine 06/14/19
--- OUTSIDE RECORDS SUMMARY | 2025-03-31 15:02 | XMS_ITS | Clinical Summary ---
Author Organization [facility] Address [address] [place] [address] Phone Care Team Providers Care Field Aide Name Role Phone George Childress MD Primary Care Provider Allergies Active Allergy Reactions Criticality Noted Date Comments Prazosin Syncope Medium 04/08/2012 Medications gabapentin (NEURONTIN) 300 mg capsule Take 1 Capsule (300 mg) by mouth 3 times daily. 90 Capsule 3 0 Active Burnett-3 Fatty Acids 1,000 mg Capsule Take 1,000 mg by mouth 2 times daily. 1 capsule twice a day to lower triglycerides 0 Active potassium chloride (KLOR-CON) 10 mEq Extended Release tablet Take 10 mEq by mouth daily with breakfast. 0 Active sennosides (SENOKOT) 8.6 mg tablet Take 8.6 mg by mouth daily. 0 Active furosemide (LASIX) 20 mg tablet Take 1 Tablet by mouth daily. 0 Active cholecalcifero l, vitamin D3, 1,000 unit Take 1,000 Units by mouth daily. 0 Active omeprazole (PriLOSEC) 40 mg Capsule, Delayed Release(E.C.) Take 40 mg by mouth daily. 0 Active rosuvastatin (CRESTOR) 40 mg tablet Take 40 mg by mouth daily at bedtime. 0 Active rOPINIRole (REQUIP) 0.5 mg tablet 0.5 mg. 2 Active cyanocobalamin 1,000 mcg Tablet 1,000 mcg. 1 Active ezetimibe (ZETIA) 10 mg tablet 10 mg. 2 Active tiotropium (SPIRIVA) 18 mcg capsule INHALE 1 CAPSULE BY ORAL INHALATION ONCE A DAY FOR BREATHING (FOR ORAL INHALATION USING SPECIAL HANDIHALER ONLY) - DO NOT SWALLOW CAPSULES NOTE: 1 CAPSULE = 2 INHALATIONS 3 Active cilostazoL (PLETAL) 50 mg Tablet TAKE ONE TABLET BY MOUTH TWICE A DAY TAKE 30 MINUTES BEFORE OR AT LEAST 2 HOURS AFTER FOOD. DO NOT TAKE WITH GRAPEFRUIT JUICE. 60 Tablet 2 4 Active buPROPion HCL (WELLBUTRIN SR) 150 mg Sustained Release 12 hour tablet Take 150 mg by mouth. 5 Active Active Problems Problem Noted Date Diagnosed Date Chronic venous insufficiency 09/03/2020 H/O aorto-femoral bypass 07/17/2020 Renal artery stenosis 01/03/2020 Popliteal artery aneurysm, bilateral 01/03/2020 Neuropathy 01/03/2020 Superficial femoral artery occlusion 01/03/2020 H/O back injury in [place] 01/03/2020 Atherosclerosis of [place] ir[place] of both lower extremities with rest pain 01/03/2020 Seroma, post-traumatic Resolved Problems Problem Noted Date Diagnosed Date Resolved Date Cellulitis 05/11/2020 07/17/2020 Chronic distal aortic occlusion 01/03/2020 07/17/2020 AAA (abdominal aortic aneury sm) without rupture 01/03/2020 07/17/2020 Encounters Date Type Department Care Team Description 03/14/2025 External Device Data STL ABSTRACTION Provider, Abstract 02/21/2025 Telephone [facility] [address] [place] [address] Elda Cardenas NP Needs Orders Written 02/21/2025 Orders Only [facility] [address] [place] [address] Elda Cardenas NP Thoracogenic scoliosis of thoracic region (Primary Dx); Degeneration of intervertebral disc of lumbar region with discogenic back pain and lower extremity pain; Bilateral lumbar radiculopathy 02/16/2025 11:00 AM CDT Office Visit [facility] [address] [place] [phone] Elda Cardenas NP Degeneration of intervertebral disc of lumbar region with discogenic back pain and lower extremity pain (Primary Dx); Spinal cord stimulator status; Bilateral lumbar radiculopathy; Thoracogenic scoliosis of thoracic region 02/16/2025 External Device Data STL ABSTRACTION Provider, Abstract 02/15/2025 External Device Data STL ABSTRACTION Provider, Abstract 02/14/2025 External Device Data STL ABSTRACTION Provider, Abstract 01/23/2025 Orders Only [facility] [address] [place] [phone] Provider, Abstract 01/18/2025 Abstract [facility] [address] [place] [phone] Dino Hutton MD 01/06/2025 3:30 PM CDT Office Visit [facility] Vascular Surgery [address] [place] [address] Francisco Garcia MD Peripheral arterial disease with history of revascularization (Primary Dx); Neuropathy; H/O aorto-femoral bypass; Tobacco abuse; S/P placement of nerve stimulator 01/06/2025 2:30 PM CDT Ancillary Procedure [facility] [place] [address] Francisco Garcia MD PAD (peripheral artery disease) from Last 3 Months Family History Medical History Relation Name Comments [...] Types Packs/Day Years Used Date Smoking Tobacco: Every Day Cigarettes Last attempted to quit: 01/08/2020 Smokeless Tobacco: Former Tobacco Cessation:Ready to Q uit: Not Asked; Counseling Given: Not Answered Alcohol Use Standard Drinks/Week Comments Yes 0 (1 standard drink = 0.6 oz pur e alcohol) Sex and Gender Information Value Date Recorded Sex Assigned at Not on file 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 Gender Identity Not on file Sexual Orientation Not on file Last Filed Vital Signs Vital Sign Reading Time Taken Comments Blood Pressure 100/56 03/22/2025 11:20 AM CDT Pulse 79 01/06/2025 3:50 PM CDT Temperature 36.9 C (98.4 F) 05/17/2020 11:21 AM CDT Respiratory Rate 20 06/15/2020 1:20 PM CDT Oxygen Saturation 93% 01/06/2025 3:50 PM CDT Inhaled Oxygen Concentration - - Weight 102.1 kg (225 lb) 03/22/2025 11:20 AM CDT Height 188 cm (6' 2 ) 03/22/2025 11:20 AM CDT Body Mass Index 28.89 03/22/2025 11:20 AM CDT Plan of Treatment Upcoming Encounters Date Type Department Care Team (Late st Contact Info) Description 04/14/2025 9:30 AM CDT Office Visit [facility] Neurosurgery [address] [place] [address] Elda Cardenas NP [address] [place] [address] Health Maintenance Due Date Last Done Comments Pre-Diabetes and Diabetes Screening 1955 DTAP/TDAP/TD VACCINES (1 - Tdap) 1975 COLORECTAL SCREENING 2001 Colorectal Cancer Screening 2001 FIT-DNA Q 3 years 2001 FIT/FOBT Q 1 year 2001 Flex Sig/CT Colonography Q 5 years 2001 ZOSTER VACCINE (1 of 2) 2006 COVID-19 Vaccine (2023-2 5 season) 2024 01/14/2024, 01/14/2023, 09/18/2021, Additional history exists INFLUENZA VACCINE (#1) 2025 RSV VACCINE (60+ or ) (1 - 1-dose 75+ series) 2031 PNEUMOCOCCAL VACCINE 50+ YEARS Completed 01/14/2023 , 01/24/2013 Abdominal Aortic Aneurysm (A AA) Screening Completed 04/14/2024, 07/02/2023, 03/12/2021, Additional history exists Medical Devices Implanted Type Area Handhole Machine Operator Device Identifier Shelf Expiration Date Model / Serial / Lot Clip Ligating Horizon Lg Ti [id number] - Csc - [id number] Implanted:12/27 by Yunier Hernández MD (Quantity not on file) Clip N/A: Aorta TELEFLEX- WECK CLOSURE SYS [id number] 03/08/2024 [id number] / / [id number] Clip Ligating Horizon Med Ti [id number] - Csc - [id number] Implanted:12/27 by Yunier Hernández MD (Quantity not on file) Clip N/A: Aorta TELEFLEX- WECK CLOSURE SYS [id number] 01/26/2024 [id number] / / [id number] Clip Ti Lrg 74892 - [id number] Implanted:12/27 by Yunier Hernández MD (Quantity not on file) Clip N/A: Abdomen [employer] [id number] 10/29/2021 [id number] / / [id number] Clip Ligating Horizon Med Ti 637251 - Csc - [id number] Implanted:Qty: 1 on 05/13/2020 by Benji Rey MD Clip Left: Groin TELEFLEX- WECK CLOSURE SYS [id number] 04/25/[id number] / / [id number] Clip Ligating Horizon Med Ti [id number] - Csc - [id number] Implanted:Qty: 1 on 05/13/2020 by Benji Rey MD Clip Left: Groin TELEFLEX- WECK CLOSURE SYS [id number] 04/25/2024 / / [id number] Hemostatic Surgifoam [id number] 1974 - [id number] Implanted:12/27 by Yunier Hernández MD (Quantity not on file) Hemostatic N/A: Groin [employer]- [employer] [id number] 10/04/2023 1974 / / [id number] [facility] Harpal Packer [id number] - [id number] Implanted:12/27 by Yunier Hernández MD (Quantity not on file) Tissue N/A: Aorta [employer] [id number] 07/28/2024 [id number] / / [id number] Procedures Procedure Name Priority Date/Time Associated Diagnosis Comments US DUPLEX ARTERIAL LEGS BILATERAL Routine 01/06/2025 3:33 PM CDT PAD (peripheral artery disease) US AORTA IVC ILIAC DUPLEX COMP Routine 04/14/2024 11:23 AM CDT H/O aorto-femoral bypass Atherosclerosis of venetie ira artery of both lower extremities with rest pain (CMS/HCC) Popliteal artery aneurysm, bilateral from Last 3 Months or Most Recently Relevant to Health Maintenance Results * US DUPLEX ARTERIAL LEGS BILATERAL (01/06/2025 3:33 PM CDT) Anatomical Region Laterality Modality Lower Extremity Ultrasound 01/06/2025 2:48 PM CDT Narrative 01/08/2025 12:05 AM CDT [facility] [address] [place] [address] Noninvasive Vascular Lab Arterial Exam Complete Lower Extremity Duplex Patient: Prieto Thompson Study ID: US DUPLEX ARTERI Gender: M : 1955 Age: 69 Room: Height: 188cm Weight: 102.1kg BSA: 2.33m^2 Pt status: Outpatient Study Date: 01/06/2025 Study Time: 02:48:54 PM BSA: 2.33m^2 Ordering: Francisco Garcia Interpreting:Norman Mchugh Clothing Manager: Thomas Haque Indications: PAD. Summary Impression: 1. Study demonstrates known occlusions involving bilateral SFA's with reconstitution of flow distally. 2. Moderate arterial insufficiency at rest involving the right & left lower extremity. Study data: Bilateral lower extremity arterial duplex. Duplex scan and ankle-brachial index. Height: 188cm. Height: 74in. Weight: 102.1kg. Weight: 225lb. BMI: 28.9kg/m^2. BSA: 2.33m^2. Location: Vascular laboratory. Patient status: Outpatient. Study status: Routine. Procedure: A vascular evaluation was performed with the patient in the supine position. Imaged vessel(s): the right common femoral, right deep femoral, right femoral, right popliteal, right anterior tibial, right posterior tibial, right dorsal pedal, left common femoral, left deep femoral, left femoral, left popliteal, left anterior tibial, left posterior tibial, and left dorsal pedal arteries. Image quality was good. Arterial flow: - Right common femoral: Right common femoral 1.52m/sec Triphasic - Right deep femoral: Right deep femoral 1.45m/sec Triphasic - Right femoral: Right femoral - prox to mid 0m/sec No apparent waveform - Right femoral distal: Right femoral distal 0.55m/sec Monophasic - Right popliteal proximal: Right popliteal mid 0.94m/sec Monophasic - Right anterior tibial distal: Right anterior tibial distal 0.48m/sec Monophasic - Right posterior tibial distal: Right posterior tibial distal 0.39m/sec Monophasic - Right peroneal distal: Right peroneal distal 0.2m/sec Monophasic - Left common femoral: Left common femoral 1.77m/sec Triphasic - Left deep femoral: Left deep femoral 0.79m/sec Triphasic - Left femoral proximal: Left femoral proximal 0.78m/sec Triphasic - Left femoral: Left femoral - prox to mid 0m/sec No apparent waveform - Left femoral mid: Left femoral mid 0.98m/sec Biphasic - Left femoral distal: Left femoral distal 0.46m/sec Biphasic - Left popliteal proximal: Left popliteal mid 0.55m/sec Biphasic - Left popliteal distal: Left popliteal distal 0.58m/sec Biphasic - Left anterior tibial distal: Left anterior tibial distal 0.37m/sec Monophasic - Left posterior tibial distal: Left posterior tibial distal 0.35m/sec Monophasic - Left peroneal distal: Left peroneal distal 0.22m/sec Monophasic Pulse volume recordings: - R ankle Mildly dampened - L ankle Mildly dampened Photoplethysmography: - R 1st toe Normal - R 2nd toe Moderately dampened - R 3rd toe Mildly dampened - R 4th toe Mildly dampened - R 5th toe Mildly dampened - L 1st toe Mildly dampened - L 2nd toe Moderately dampened - L 3rd toe Moderately dampened - L 4th toe Moderately dampened - L 5th toe Moderately dampened Ankle brachial indices Baseline Baseline Rt PT: 97mm Hg Rt DP: 101mm Hg Rt PT: 0.70 Rt DP: 0.73 Lt PT: 106mm Hg Lt DP: 95mm Hg Lt PT: 0.77 Lt DP: 0.69 Brachial pressures: - Rt brachial pressure (sys): 138mm Hg - Max brachial pressure (sys): 138mm Hg [facility] is accredited with the Intersocietal Commission for the Accreditation of Vascular Laboratories (ICAVL) Prepared and Electronically Authenticated Norman Mchugh Confirmed 01/08/2025 00:05 Procedure Note Norman Mchugh MD - 01/08/2025 [facility] [address] [address] Noninvasive Vascular Lab Arterial Exam Complete Lower Extremity Duplex Patient: Prieto Thompson Study ID: US DUPLEX ARTERI Gender: M : 1955 Age: 69 Room: Height: 188cm Weight: 102.1kg BSA: 2.33m^2 Pt status: Outpatient Study Date: 01/06/2025 Study Time: 02:48:54 PM BSA: 2.33m^2 Ordering: Francisco Garcia Interpreting:Norman Mchugh Clothing Manager: Thomas Haque Indications: PAD. Summary Impression: 1. Study demonstrates known occlusions involving bilateral SFA's with reconstitution of flow distally. 2. Moderate arterial insufficiency at rest involving the right & leftlower extremity. Study data: Bilateral lower extremity arterial duplex. Duplex scanand ankle-brachial index. Height: 188cm. Height: 74in. Weight:102.1kg. Weight: 225lb. BMI: 28.9kg/m^2. BSA: 2.33m^2. Location:Vascular laboratory. Patient status: Outpatient. Study status: Routine. Procedure: A vascular evaluation was performed with the patient in thesupine position. Imaged vessel(s): the right common femoral, right deepfemoral, right femoral, right popliteal, right anterior tibial, right posteriortibial, right dorsal pedal, left common femoral, left deep femoral, left femoral,left popliteal, left anterior tibial, left posterior tibial, and left dorsalpedal arteries. Image quality was good. Arterial flow: - Right common femoral: Right common femoral 1.52m/sec Triphasic - Right deep femoral: Right deep femoral 1.45m/sec Triphasic - Right femoral: Right femoral - prox to mid 0m/sec No apparent waveform - Right femoral distal: Right femoral distal 0.55m/sec Monophasic - Right popliteal proximal: Right popliteal mid 0.94m/sec Monophasic - Right anterior tibial distal: Right anterior tibial distal 0.48m/sec Monophasic - Right posterior tibial distal: Right posterior tibial distal 0.39m/sec Monophasic - Right peroneal distal: Right peroneal distal 0.2m/sec Monophasic - Left common femoral: Left common femoral 1.77m/sec Triphasic - Left deep femoral: Left deep femoral 0.79m/sec Triphasic - Left femoral proximal: Left femoral proximal 0.78m/sec Triphasic - Left femoral: Left femoral - prox to mid 0m/sec No apparent waveform - Left femoral mid: Left femoral mid 0.98m/sec Biphasic - Left femoral distal: Left femoral distal 0.46m/sec Biphasic - Left popliteal proximal: Left popliteal mid 0.55m/sec Biphasic - Left popliteal distal: Left popliteal distal 0.58m/sec Biphasic - Left anterior tibial distal: Left anterior tibial distal 0.37m/sec Monophasic - Left posterior tibial distal: Left posterior tibial distal 0.35m/sec Monophasic - Left peroneal distal: Left peroneal distal 0.22m/sec Monophasic Pulse volume recordings: - R ankle Mildly dampened - L ankle Mildly dampened Photoplethysmography: - R 1st toe Normal - R 2nd toe Moderately dampened - R 3rd toe Mildly dampened - R 4th toe Mildly dampened - R 5th toe Mildly dampened - L 1st toe Mildly dampened - L 2nd toe Moderately dampened - L 3rd toe Moderately dampened - L 4th toe Moderately dampened - L 5th toe Moderately dampened Ankle brachial indices Baseline Baseline Rt PT: 97mm Hg Rt DP:101mm Hg Rt PT: 0.70 Rt DP: 0.73 Lt PT: 106mm Hg Lt DP: 95mm Hg Lt PT: 0.77 Lt DP:0.69 Brachial pressures: - Rt brachial pressure (sys): 138mm Hg - Max brachial pressure (sys): 138mm Hg [facility] is accredited withthe [facility] Commission for the Accreditation of Vascular Laboratories (ICAVL) Prepared and Electronically Authenticated Norman Mchugh Confirmed 01/08/2025 00:05 us Francisco Garcia MD US ORDERABLES Final Result * US AORTA IVC ILIAC DUPLEX COMP (04/14/2024 11:23 AM CDT) Anatomical Region Laterality Modality Abdomen Ultrasound 04/14/2024 11:0 6 AM CDT Narrative 04/16/2024 3:22 PM CDT [facility] [address] [place] [address] Noninvasive Vascular Lab Limited Abdominal Ultrasound Evaluation Patient: Prieto Thompson Study ID: US AORTA IVC MARGY Gender: M : 1955 Age: 68 Room: Height: 188cm Weight: 104.3kg BSA: 2.35m^2 Pt status: Study Date: 04/14/2024 Study Time: 11:06:34 AM BSA: 2.35m^2 Ordering: Olivia Magallon Interpreting:Francisco Garcia Clothing Manager: Britni Garza RVT Indications: I74.09 Aortoiliac disease. History: Risk factors: Previous surgery: Aorta bi-fem bypass. Summary Impression: 1. Study demonstrates patency of the tjrpg-jd-jbsxuqz graft. 2. Multiphasic signals within the common femoral arteries are consistent with no evidence of in-graft stenosis. Study data: Limited abdominal ultrasound evaluation. Duplex scan. Height: 188cm. Height: 74in. Weight: 104.3kg. Weight: 230lb. BMI: 29.5kg/m^2. BSA: 2.35m^2. Aorta and systemic arteries: Abdominal aorta: The vessel is poorly visualized. Arterial flow: - Aorta proximal: Aorta proximal 0.88m/sec 2.53cm 2.37cm - Aorta mid: Aorta mid 0.81m/sec 2.43cm 2.43cm - Aorta distal: Aorta distal area bypass 0.72m/sec 2.38cm 2.45cm - Right common iliac proximal: Right common iliac area, proximal- bypass 1.42m/sec 1.04cm - Right common iliac mid: Right common area iliac mid, bypass. 0.78m/sec - Right common iliac distal: Right common iliac distal area, bypass Bowel gas not seen - Right external iliac proximal: Right external iliac proximal area, bypass. 1.06m/sec - Right external iliac mid: Right external iliac mid area, bypass. 0.99m/sec - Right external iliac distal: Right external iliac distal area, bypass. 1.1m/sec - Left common iliac proximal: Left common iliac proximal area, bypass. 1.53m/sec 1.10cm - Left common iliac mid: Left common iliac mid area, bypass. 1.01m/sec - Left common iliac distal: Left common iliac distal area, bypass. 0.74m/sec - Left external iliac proximal: Left external iliac proximal area, bypass. 0.72m/sec - Left external iliac mid: Left external iliac mid 0.66m/sec - Left external iliac distal: Left external iliac distal area, bypass. 1.2m/sec [facility] is accredited with the Intersocietal Commission for the Accreditation of Vascular Laboratories (ICAVL) Prepared and Electronically Authenticated Francisco Garcia Confirmed 04/16/2024 15:22 Procedure Note Francisco Garcia MD - 04/16/2024 [facility] [address] [place] [address] Noninvasive Vascular Lab Limited Abdominal Ultrasound Evaluation Patient: Prieto Thompson Study ID: US AORTA IVC MARGY Gender: M : 1955 Age: 68 Room: Height: 188cm Weight: 104.3kg BSA: 2.35m^2 Pt status: Study Date: 04/14/2024 Study Time: 11:06:34 AM BSA: 2.35m^2 Ordering: Olivia Magallon Interpreting:Francisco Garcia Clothing Manager: Britni Garza RVT Indications: I74.09 Aortoiliac disease. History: Risk factors: Previous surgery: Aorta bi-fem bypass. Summary Impression: 1. Study demonstrates patency of the ppznt-sp-jgrprao graft. 2. Multiphasic signals within the common femoral arteries are consistentwith no evidence of in-graft stenosis. Study data: Limited abdominal ultrasound evaluation. Duplex scan. Height: 188cm. Height: 74in. Weight: 104.3kg. Weight: 230lb. BMI: 29.5kg/m^2. BSA: 2.35m^2. Aorta and systemic arteries: Abdominal aorta: The vessel is poorly visualized. Arterial flow: - Aorta proximal: Aorta proximal 0.88m/sec 2.53cm 2.37cm - Aorta mid: Aorta mid 0.81m/sec 2.43cm 2.43cm - Aorta distal: Aorta distal area bypass 0.72m/sec 2.38cm 2.45cm - Right common iliac proximal: Right common iliac area, proximal- bypass 1.42m/sec 1.04cm - Right common iliac mid: Right common area iliac mid, bypass. 0.78m/sec - Right common iliac distal: Right common iliac distal area, bypass Bowelgas not seen - Right external iliac proximal: Right external iliac proximal area,bypass. 1.06m/sec - Right external iliac mid: Right external iliac mid area, bypass.0.99m/sec - Right external iliac distal: Right external iliac distal area, bypass. 1.1m/sec - Left common iliac proximal: Left common iliac proximal area, bypass. 1.53m/sec 1.10cm - Left common iliac mid: Left common iliac mid area, bypass. 1.01m/sec - Left common iliac distal: Left common iliac distal area, bypass.0.74m/sec - Left external iliac proximal: Left external iliac proximal area,bypass. 0.72m/sec - Left external iliac mid: Left external iliac mid 0.66m/sec - Left external iliac distal: Left external iliac distal area, bypass. 1.2m/sec [facility] is accredited withthe [facility] Commission for the Accreditation of Vascular Laboratories (ICAVL) Prepared and Electronically Authenticated Francisco Garcia Confirmed 04/16/2024 15:22 Olivia Magallon [facility] US ORDERABLES Final Result from Last 3 Months or Most Recently Relevant to Health Maintenance Insurance [facility] [place] [address] * Guarantor: PRIETO THOMPSON Account Type Relation to Patient Date of Phone Billing Address Personal/Family [address] [place] [id number] [employer] RX Member Subscriber Plan / Payer (Ef fective for All Dates) Name:Prieto Thompson Relation to Subscriber:Self Name:Prieto Thompson Payer ID:Not on file Type:RX Commercial Address: [place], [place] [employer] * Guarantor: OLD [employer] Hart (C) Account Type Relation to Patient Date of Phone Billing Address Corporate Other DEFAULT ADDRESS [address] [employer] [facility] [employer] * Guarantor: EMELY SPEAR-BRYAN 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
--- OUTSIDE RECORDS SUMMARY | 2025-03-31 15:02 | XMS_ITS | Patient Health Record ---
Author Organization [facility] Address [address] [place], [place] [id number] Care Team Providers Care Water Pollution Control Technician Name Role Phone [facility] Primary Care Provider Kenia roger Comer MD, George Unavailable [phone] [place], [place] Unavailable Unavailable Allergies Allergen (clinical drug ingredient) Drug/Non Drug Allergy documented on EMR Reaction Allergy Type Onset Date Status prazosin prazosin Unknown Drug Allergy Active Reason For Referral No Information Medications Medication SIG (Take, Route, Frequency, Duration) Notes Start Date End Date Status sildenafil 100 mg 1 tab orally once a week, as needed Active cholecalciferol 1000 intl units 1 tab orally once a day Acti ve cilostazol 100 mg 1/2 tab orally 2 cary es a day Active rosuvastatin 40 mg 1 tab orally once a day (at bedtime) Active Vitamin D3 1000 intl units 1 tab orally once a day Active Fish Oil 1000 mg 1 cap orally 2 times a day Active rOPINIRole 0.5 mg 1 tab orally at bedtime Active Aspir-Low 81 mg 1 tab orally once a day Active buPROPion 300 mg/24 hours 1 tab orally e very 24 hours Active omeprazole 40 mg 1 cap orally once a day Active meloxicam 15 mg 1 tab po orally Q24H prn pain; take with food Active Tylenol Extra Strength 500 mg 3-4 tabs o rally twice a day Active Social History Tobacco Use: Social History Observation Description Date Details (start date - stop date) Current Smoker 09/28/1962 - NA alcohol Question Answer Notes Did you have a drink contain ing alcohol in the past year? Yes How often did you have a dri nk containing alcohol in the past year? Four or more times a week (4 points) How many drinks did you have on a typical day when you were drinking in the past year? 3 or 4 (1 point) How often did you have six o r more drinks on one occasion in the past year? Never (0 points) Points 5 Interpretation Positive Tobacco use: Question Answer Notes : current smoker Are you interested in quitting? Not ready to laurie t How many cigarettes a day do you smoke? 31 or mo re How often do you smoke cigarettes? every day How soon after you wake up do you smoke your fir st cigarette? 6-30 min When did you start smoking? 09/28/1962 Problems Problem Type SNOMED Code ICD Code Onset Dates Problem Status W/U Status Risk Notes Problem Solitary sacroiliitis (229410808) Sacroiliitis, not elsewhere classified (M46.1) Active confirmed Problem Low back pain (288626269) Low back pain (M54.5) Active confirmed Problem Lumbosacral spondylosis without myelopathy (58041991) Spondylosis without myelopathy or radiculopathy, lumbar region (M47.816) Active confirmed Problem High risk drug monitoring status (013003895) correction (current) use of opiate analgesic (Z79.891) Active confirmed Problem Anxiety disorder (294059828) Other specified anxiety disorders (F41.8) Active confirmed Problem Obstructive sleep apnea syndrome (71220618) Obstructive sleep apnea (adult) (pediatric) (G47.33) Active confirmed Problem 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) Active confirmed Problem Acquired spondylolisthesis (083633341) Spondylolisthesis , lumbar region (M43.16) Active confirmed Problem Radiculopathy due to lumbar intervertebral disc disorder (303741669896458) Intervertebral disc disorders with radiculopathy, lumbar region (M51.16) Active confirmed Problem Long-term current use of drug therapy (101807414) 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 (Z79.899) Active confirmed Problem Muscle pain (43799173) Myalgia, unspecified site (M79.10) Active confirmed Plan Of Treatment No Information Insurance Providers Payer Name Payer Address Payer Phone Subscriber Number Group Number Insured Name Patient Relationship to Insured Coverage Start Date Coverage End Date [employer] [address] [place] [phone] [id number] Dakota John Self - patient is the insured Medical (General) History Medical History History ICD Code Low back pain, suspect radiculopathy Degenerative arthrtis of the spine Post traumatic stress disorder Migraine headaches Ventral hernia Paralysis of sciatic nerve Abdominal aortic aneurysm, without ruptu re Anxiety B-complex vitamin deficiency Episodic mood disorder Traumatic brain injury Impotence Insomnia Osteoarthrosis Other idiopathic peripheral autonomic ne uropathy Peripheral vascular disease Psychololgical stress, recurrent depress alfonso disorder Restless legs syndrome Sciatica Segmental and somatic dysfunction of lum bar region Hyperlipidemia Testerone deficiency Sleep apnea Surgical History Surgery Date(Month/Year) Stomach surgery, performed in [place], [place], 1965 Cervical surgery, performed in [facility] 1991 Umbilical surgery, performed in [place], [facility] Hospitalization History Reason Date(Month/Year) [facility], treated in [place] 2001 [facility], treated in [place] 2001
--- OUTSIDE RECORDS SUMMARY | 2025-03-31 15:02 | XMS_ITS | Encounter Summary ---
Author Organization [facility] Address [address] [place] [address] Care Team Providers Care Radiator Repairer Name Role Phone George Childress MD Primary Care Provider + [phone] Reason for Referral * Radiology Services (Routine) - Closed Specialty Diagnoses / Procedures Referred By Jina lord Referred To Contact Diagnoses Aortoiliac occlusive disease (CMS/HCC) Procedures US AORTA Connie Posadas NP Phone: tel: fax: Referral ID Status Reason Start Date Expiration Date Visits Re quested Visits Authorized [id number] Closed 08/29/2020 09/29/2021 1 1 MOUNTER Encounter Details Date Type Department Care Team (Late st Contact Info) Description 08/29/2020 Ancillary Orders [facility] Vascular Surgery [place] [address] [place] [id number] Connie Posadas NP [address] [place] [id number] Aortoiliac occlusive disease (CMS/HCC) Social History Tobacco Use Types Packs/Day Years Used Date Smoking Tobacco: Former Cigarettes Q uit: 01/08/2020 Smokeless Tobacco: Former Alcohol Use Standard Drinks/Week Comments Yes 0 (1 standard drink = 0.6 oz pur e alcohol) occ Sex and Gender Information Value Date Recorded Sex Assigned at Not on file Legal Sex Male 1:21 PM CDT Gender Identity Not on file Sexual Orientation Not on file COVID-19 Exposure Response Date Recorded In the last month, have you been in contact with someone who was confirmed or suspected to have Coronavirus / COVID-19? No / Unsure 08/01/2020 10:14 AM TUBE MOUNTER documented as of this encounter Plan of Treatment Not on file documented as of this encounter Results * US AORTA (03/12/2021 11:25 AM CDT) Anatomical Region Laterality Modality Abdomen Ultrasound 03/12/2021 11:2 5 AM CDT Impressions 03/12/2021 6:11 PM CDT IMPRESSION: Please see below. Exam: US AORTA Date/Time of Exam: 03/12/2021 11:25 AM Reason For Exam: See Diagnosis. Diagnosis: Aortoiliac occlusive disease. Findings: This study is correlated with a CT of the abdomen and pelvis dated 05/11/2020. The technologist reports that large portions of the aorta and iliac vessels are obscured by bowel gas. The aorta is generally ectatic with a maximal distal diameter 3.6 cm x 3.6 cm. This measurement is obtained from the thrombosed hughes distal aorta. Consistent with the previous CT scan, there is an aortoiliac bypass graft reportedly difficult to visualize in the region of the distal aorta and common iliac arteries. The distal anastomoses to the common femoral arteries are well-visualized and patent. The renal arteries are patent at their cristobal bilaterally. Assessment for stenoses within the bypass graft is limited due to limited visualization. IMPRESSION: Patent postsurgical changes of aorto bifemoral bypass grafting. The bypass graft is patent. Evaluation of the graft is somewhat limited. The distal anastomoses and the proximal anastomosis are well-visualized and show no evidence of stenosis or aneurysm. Narrative Procedure Note Lucila Jones MD - 03/12/2021 IMPRESSION: Please see below. Exam: US AORTA Date/Time of Exam: 03/12/2021 11:25 AM Reason For Exam: See Diagnosis. Diagnosis: Aortoiliac occlusive disease. Findings: This study is correlated with a CT of the abdomen and pelvis dated 05/11/2020. The technologist reports that large portions of the aorta and iliac vessels are obscured by bowel gas. The aorta is generally ectatic with a maximal distal diameter 3.6 cm x 3.6 cm. This measurement is obtained from the thrombosed hughes distal aorta. Consistent with the previous CT scan, there is an aortoiliac bypass graft reportedly difficult to visualize in the region of the distal aorta and common iliac arteries. The distal anastomoses to the common femoral arteries are well-visualized and patent. The renal arteries are patent at their cristobal bilaterally. Assessment for stenoses within the bypass graft is limited due to limited visualization. IMPRESSION: Patent postsurgical changes of aorto bifemoral bypass grafting. The bypass graft is patent. Evaluation of the graft is somewhat limited. The distal anastomoses and the proximal anastomosis are well-visualized and show no evidence of stenosis or aneurysm. 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
--- OUTSIDE RECORDS SUMMARY | 2025-03-31 15:02 | XMS_ITS | Encounter Summary ---
Author Organization [facility] Address [address] [place] [address] Care Team Providers Care Day Porter Name Role Phone George Childress MD Primary Care Provider + [phone] Reason for Referral * Radiology Services (Routine) - Closed Specialty Diagnoses / Procedures Referred By Contac t Referred To Contact Diagnoses PVD (peripheral vascular disease) Procedures US ANKLE PRESSURE INDEX US ANKLE BRACHIAL INDEX W STRESS Connie Posadas NP Phone: tel: fax: [facility] Pre-Registration [place] CALL TO MAKE APPOINTMENT ONLY [address] [place] [address] Phone: tel: fax: Referral ID Status Reason Start Date Expiration Date Visits Re quested Visits Authorized [id number] Closed 01/30/2020 03/01/2021 1 1 Encounter Details Date Type Department Care Team (Late st Contact Info) Description 03/05/2020 Ancillary Orders [facility] Vascular Surgery [place] [address] [place] [phone] Connie Posadas NP [address] [place] [phone] PVD (peripheral vascular disease) Social History Tobacco Use Types Packs/Day Years [...] have Coronavirus / COVID-19? No / Unsure 03/05/2020 7:45 AM CDT documented as of this encounter Plan of Treatment Not on file documented as of this encounter Results * US ANKLE PRESSURE INDEX (03/05/2020 8:58 AM CDT) Anatomical Region Laterality Modality Lower Extremity Ultrasound 03/05/2020 8:18 AM CDT Narrative 03/11/2020 10:59 PM CDT [facility] [address] [place] [address] [place] [id number] Noninvasive Vascular Lab SHAGGY with PVR Arterial Physiologic Evaluation Patient: John Duncan Study ID: 1 Gender: M : 1955 Age: 64 Room: Height: Weight: BSA: Pt status: Outpatient Study Date: 03/05/2020 Study Time: 08:18:00 AM BSA: Ordering: Connie Posadas Interpreting:Lakhwinder Navarrete MD, RPVI Assembler Knife: Malia Beard RVT Indications: Dx: PVD (peripheral vascular disease) [I73.9 (ICD-10-CM)] History: Risk factors: Prior angiography/angioplasty. Aortobifemoral bypass graft, right and left common femoral and superficial femoral endarterectomy. Summary Impression: Study demonstrates moderate arterial insufficiency at rest involving the right lower extremity and the left lower extremity Study data: SHAGGY with PVR. Ankle-brachial index and pulse volume recording. Ethnicity: Ethnicity: white. Location: Vascular laboratory. Patient status: Outpatient. Study status: Routine. Procedure: A vascular evaluation was performed. Exam quality was good. Ankle brachial indices Rt PT: 91mm Hg Rt DP: 94mm Hg Rt PT: 0.69 Rt DP: 0.71 Lt PT: 91mm Hg Lt DP: 77mm Hg Lt PT: 0.69 Lt DP: 0.58 Brachial pressures: - Rt brachial pressure (sys): 132mm Hg - Lt brachial pressure (sys): 117mm Hg - Max brachial pressure (sys): 132mm Hg Arterial flow: - Right common femoral - Multiphasic - Right popliteal - Monophasic - Right posterior tibial - Monophasic - Right dorsal pedal - Monophasic - Left common femoral - Multiphasic - Left popliteal - Monophasic - Left posterior tibial - Monophasic - Left dorsal pedal - Monophasic Pulse volume recordings: - R ankle Mildly dampened - R great toe 62mm Hg Mildly dampened 0.47 - L ankle Mildly dampened - L great toe 38mm Hg Mildly dampened 0.29 [facility] is accredited with the Intersocietal Commission for the Accreditation of Vascular Laboratories (ICAVL) Prepared and Electronically Authenticated Lakhwinder Navarrete MD, REMEDIOS Confirmed 03/11/2020 22:59 Procedure Note Lakhwinder Navarrete MD - 03/11/2020 [facility] [address] [place] [address] Noninvasive Vascular Lab SHAGGY with PVR Arterial Physiologic Evaluation Patient: John Duncan Study ID: 1 Gender: M : 1955 Age: 64 Room: Height: Weight: BSA: Pt status: Outpatient Study Date: 03/05/2020 Study Time: 08:18:00 AM BSA: Ordering: Connie Posadas Interpreting:Lakhwinder Navarrete MD, RPVI Assembler Knife: Malia CAPELLANT Indications: Dx: PVD (peripheral vascular disease) [I73.9 (ICD-10-CM)] History: Risk factors: Prior angiography/angioplasty. Aortobifemoral bypass graft, right and left common femoral and superficial femoral endarterectomy. Summary Impression: Study demonstrates moderate arterial insufficiency at rest involving the right lower extremity and the left lower extremity Study data: SHAGGY with PVR. Ankle-brachial index and pulse volume recording. Ethnicity: Ethnicity: white. Location: Vascular laboratory. Patient status: Outpatient. Study status: Routine. Procedure: A vascular evaluation was performed. Exam quality was good. Ankle brachial indices Rt PT: 91mm Hg Rt DP: 94mm Hg Rt PT: 0.69 Rt DP: 0.71 Lt PT: 91mm Hg Lt DP: 77mm Hg Lt PT: 0.69 Lt DP: 0.58 Brachial pressures: - Rt brachial pressure (sys): 132mm Hg - Lt brachial pressure (sys): 117mm Hg - Max brachial pressure (sys): 132mm Hg Arterial flow: - Right common femoral - Multiphasic - Right popliteal - Monophasic - Right posterior tibial - Monophasic - Right dorsal pedal - Monophasic - Left common femoral - Multiphasic - Left popliteal - Monophasic - Left posterior tibial - Monophasic - Left dorsal pedal - Monophasic Pulse volume recordings: - R ankle Mildly dampened - R great toe 62mm Hg Mildly dampened 0.47 - L ankle Mildly dampened - L great toe 38mm Hg Mildly dampened 0.29 [facility] is accredited with the Intersocietal Commission for the Accreditation of Vascular Laboratories (ICAVL) Prepared and Electronically Authenticated Lakhwinder Navarrete MD, RPVI Confirmed 03/11/2020 22:59 Connie Posadas [facility] ORDERABLES Final Resul t documented in this encounter Visit Diagnoses Diagnosis PVD (peripheral vascular disease) Peripheral vascular disease, unspecified PVD (peripheral vascular disease) Peripheral vascular disease, unspecified documented in this encounter Care Teams Day Porter Relationship Specialty Start Date End Date George Childress MD PCP - General Emergency Medicine 06/14/19 documented as of this encounter
[2025-03-31 15:06] VITALS: BP 116/69; PULSE 98; RESP 16; TEMP 36.6; O2SAT 93; BMI 30.7
--- NOTE | 2025-03-31 15:47 | USR_ITS ---
PROCEDURE INFORMATION: Exam: US Duplex Right Upper Extremity Veins, Limited Exam date and time: 03/31/2025 4:52 PM Age: 69 years old Clinical indication: Pain; Arm, upper; Right; Additional info: Torn bicep swelling and pain TECHNIQUE: Imaging protocol: Real-time duplex ultrasound of the right Upper Extremity with 2-D westfall scale, color Doppler flow and spectral waveform analysis with image documentation. Limited exam focused on the right upper extremity veins. COMPARISON: CT angio abd aorta runof [id number] 11/28/2019 9:11 AM FINDINGS: Right deep veins: Unremarkable. Axillary and brachial veins are patent throughout without thrombus. Normal Doppler waveforms. Normal compressibility and/or augmentation response. Visualized internal jugular and subclavian veins are patent. Superficial veins: Unremarkable. Visualized cephalic and basilic veins are patent without thrombus. Soft tissues: Unremarkable. US/[place] [id number] IMPRESSION: No evidence of deep vein thrombosis.
[2025-03-31] MEDS: HYDROcodone-acetaminophen 5-325 mg Tablet 1 TAB PO ×2 (15:51→18:04)
--- NOTE | 2025-03-31 17:21 | USR_ITS ---
PROCEDURE INFORMATION: Exam: US Right Limited Joint or Other Non-Vascular Extremity Structure Exam date and time: 03/31/2025 5:33 PM Age: 69 years old Clinical indication: Injury or trauma; Other: Arm injury this morning. Outward movement of arm; Blunt trauma; Upper arm; Right; Injury date: Today TECHNIQUE: Imaging protocol: US right limited joint or other nonvascular extremity structure. Real-time ultrasound with image documentation. Exam focused on the area of clinical interest. COMPARISON: CR XR hand RT min 3V* [id number] 02/28/2025 7:56 AM FINDINGS: Soft tissues: Mild subcutaneous soft tissue edema. Heterogeneous hypoechoic masslike structure in the medial upper arm along the muscle measures about 4.4 x 4.0 x 6.9 cm. No significant flow on color imaging. US/US soft tissue/extremity [id number] IMPRESSION: Hypoechoic masslike structure in the medial upper arm could represent hematoma versus injury to the biceps muscle. Correlate with clinical findings. MRI could be considered for further assessment.
--- NOTE | 2025-03-31 17:22 | XRR_ITS ---
PROCEDURE INFORMATION: Exam: XR Right Forearm Exam date and time: 03/31/2025 5:46 PM Age: 69 years old Clinical indication: Injury or trauma; Other: [place] pop in arm when cleaning rifle; Sprain or strain; Arm, lower; Right TECHNIQUE: Imaging protocol: Radiologic exam of the right forearm. Views: 2 views. COMPARISON: CR XR hand RT min 3V* [id number] 02/28/2025 7:56 AM FINDINGS: Bones/joints: Mild ossific densities adjacent to the medial and lateral humeral epicondyles likely represent calcific tendinitis. No definite acute fracture. No dislocation. Soft tissues: Normal. XR/XR forearm RT 2V [id number] IMPRESSION: No definite acute osseous findings.
--- NOTE | 2025-03-31 17:22 | XRR_ITS ---
PROCEDURE INFORMATION: Exam: XR Right Humerus Exam date and time: 03/31/2025 5:44 PM Age: 69 years old Clinical indication: Injury or trauma; Other: [place] pop in arm when cleaning his rifle; Sprain or strain; Humerus; Right TECHNIQUE: Imaging protocol: Radiologic exam of the right humerus. Views: 2 or more views. COMPARISON: US soft tissue/extremity [id number] 03/31/2025 5:33 PM FINDINGS: Bones/joints: No displaced fracture. [id number] degenerative changes of the acromioclavicular and glenohumeral joints. Ossific densities adjacent to the medial humeral epicondyle. Soft tissues: Normal. XR/[place] [id number] IMPRESSION: Ossific densities adjacent to the medial humeral epicondyle could represent avulsion injury or calcific tendinitis.
[2025-03-31 18:05] VITALS: BP 142/84; PULSE 95; O2SAT 95
--- NOTE | 2025-03-31 20:04 | W.ED.EXTPRO ---
HPI - Extremity Problem General: Chief complaint: Extremity Injury, Upper Stated complaint: injured arm, bruising and swelling Time Seen by Provider: 03/31/25 15:13 History of Present Illness: 69-year-old male patient presents to the emergency department with right upper arm pain. Patient states he was cleaning a gun and slung a bolt and when he swung the bolt heard a popping sound and had immediate pain patient presents with swelling to the right upper arm as well as ecchymosis present. Patient is neurovascularly intact. Related Data Home Medications ?Medication ?Instructions ?Recorded ?Confirmed aspirin 81 mg tablet,delayed 81 mg PO DAILY 11/16/19 02/28/25 release (Adult Low Dose Aspirin) citalopram 40 mg tablet 20 mg PO DAILY 11/16/19 02/28/25 cyanocobalamin (vitamin B-12) 1,000 mcg PO DAILY 02/20/22 02/28/25 1,000 mcg capsule ezetimibe 10 mg tablet 10 mg PO DAILY 02/20/22 02/28/25 gabapentin 300 mg capsule 300 mg PO TID 02/20/22 02/28/25 omega 8-wqa-hgr-fish oil 1,000 mg 1 cap PO BID 02/20/22 02/28/25 (120 mg-180 mg) capsule (Fish Oil) cholecalciferol (vitamin D3) 50 50 mcg PO DAILY 03/06/22 02/28/25 mcg (2,000 unit) tablet (Vitamin D3) omeprazole 40 mg capsule,delayed 40 mg PO BID 06/20/22 02/28/25 release ropinirole 0.5 mg tablet 0.5 mg PO TID 06/20/22 02/28/25 Previous Rx's ?Medication ?Instructions ?Recorded furosemide 20 mg tablet (Lasix) 20 mg PO QAM #90 tabs 08/26/22 potassium chloride 10 mEq 10 meq PO DAILY #90 tabs 08/26/22 tablet,extended release urea 40 % topical cream 1 applic topical TID #198 grams 01/29/23 tiotropium bromide 18 mcg capsule 1 cap inhalation DAILY #60 03/19/23 with inhalation device (Spiriva inhalations with HandiHaler) rosuvastatin 40 mg tablet 40 mg PO DAILY #90 tabs 11/04/23 meloxicam 15 mg tablet 15 mg PO DAILY #14 tabs 03/14/24 hydrocodone 5 mg-acetaminophen 325 1 tab PO Q6H #20 tabs 03/31/25 mg tablet Allergies Allergy/AdvReac Type Severity Reaction Status Date / Time prazosin Allergy Unknown Unknown Verified 03/31/25 15:09 Review of Systems General: Reports: 10 or more systems reviewed and unremarkable except in HPI and below PFSH ED PFSH: Medical History Anxiety History of traumatic brain injury PTSD (post-traumatic stress disorder) RLS (restless legs syndrome) Lower extremity edema Osteoarthritis AAA (abdominal aortic aneurysm) without rupture PVD (peripheral vascular disease) Surgical History S/P cervical spinal fusion S/P hernia repair S/P aorta repair S/P insertion of spinal cord stimulator Family History Mother Myocardial infarction Other Diabetes Social History Smoking and tobacco/nicotine status: current every day tobacco/nicotine user cigarettes Physical Exam Const: COMMON NORMALS: patient oriented x3 Chest: COMMONS NORMALS: normal inspection of the chest and normal palpation of entire chest wall Resp: COMMON NORMALS: normal respiratory effort, No retractions and clear to auscultation bilaterally AUSCULTATION: clear to auscultation bilaterally Cardio: COMMON NORMALS: regular rate and regular rhythm RATE: regular rate RHYTHM: regular rhythm Extremity: RIGHT UPPER EXTREMITY: Yes upper arm (Ecchymosis and edema noted) Neuro: COMMON NORMALS: patient oriented x3, CN's II-XII intact bilaterally, moves all extremities, no focal motor deficits and no sensory deficits noted Skin: COMMON NORMALS: no rashes or lesions noted GENERAL SKIN EXAM: no rashes or lesions noted Course Vital Signs: Vital signs: Vital Signs Temperature 97.9 F 03/31/25 15:06 Pulse Rate 95 03/31/25 18:05 Respiratory Rate 16 03/31/25 15:06 Blood Pressure 142/84 03/31/25 18:05 Pulse Oximetry 95 03/31/25 18:05 Oxygen Delivery Me thod Room Air 03/31/25 18:05 MDM - Extremity (Nontraumatic) Medical Decision Making Patient is well-appearing nontoxic and in no acute distress.69-year-old male patient presents to the emergency department with right upper arm pain. Patient states he was cleaning a gun and slung a bolt and when he swung the bolt heard a popping sound and had immediate pain patient presents with swelling to the right upper arm as well as ecchymosis present. Patient is neurovascularly intact. Patient has a positive hook test. Ultrasound obtained which reveals a hematoma in the bicep muscle this is likely due to a bicep injury. Patient is neurovascularly intact distally. Patient denies any chest pain or shortness of breath. Patient denies any numbness or tingling. Given patient's injury and physical exam findings I will place in a posterior OCL long splint with a arm sling I will have patient follow-up with Ortho for possible MRI and further evaluation patient has been advised to continue to wear the OCL and arm sling until evaluated by Ortho I will send home patient with a short course of pain meds. Patient is neurovascularly intact distally pre and post splint application. Based on x-ray findings patient does not have any pain in the elbow there is no tenderness on palpation Lab Data Radiology Impressions Venous Duplex 03/31/25 15:47 IMPRESSION: No evidence of deep vein thrombosis. Soft Tissue Ultrasound 03/31/25 17:21 IMPRESSION: Hypoechoic masslike structure in the medial upper arm could represent hematoma versus injury to the biceps muscle. Correlate with clinical findings. MRI could be considered for further assessment. Forearm X-Ray 03/31/25 17:22 IMPRESSION: No definite acute osseous findings. Humerus X-Ray 03/31/25 17:22 IMPRESSION: Ossific densities adjacent to the medial humeral epicondyle could represent avulsion injury or calcific tendinitis. All radiology interpretation(s) finalized by discharge Discharge Plan Discharge Patient Disposition: Home Clinical Impression: Biceps muscle tear Condition: Stable Prescriptions: New hydrocodone-acetaminophen 5-325 mg tablet 1 tab PO Q6H Qty: 20 0RF No Action citalopram 40 mg tablet 20 mg PO DAILY aspirin [Adult Low Dose Aspirin] 81 mg tablet,delayed release (DR/EC) 81 mg PO DAILY gabapentin 300 mg capsule 300 mg PO TID cyanocobalamin (vitamin B-12) 1,000 mcg capsule 1,000 mcg PO DAILY omega 2-gyq-upu-fish oil [Fish Oil] 1,000 mg (120 mg-180 mg) capsule 1 cap PO BID ezetimibe 10 mg tablet 10 mg PO DAILY urea 40 % cream 1 applic topical TID Qty: 198 4RF ropinirole 0.5 mg tablet 0.5 mg PO TID omeprazole 40 mg capsule,delayed release(DR/EC) 40 mg PO BID Spiriva with HandiHaler 18 mcg capsule, w/inhalation device 1 cap inhalation DAILY Qty: 60 6RF Rx Instructions: puncture 1 cap using device; one dose = 2 inhalations potassium chloride 10 mEq tablet extended release 10 meq PO DAILY Qty: 90 3RF Rx Instructions: To be taken with the Furosemide (Lasix) furosemide [Lasix] 20 mg tablet 20 mg PO QAM Qty: 90 3RF rosuvastatin 40 mg tablet 40 mg PO DAILY Qty: 90 3RF cholecalciferol (vitamin D3) [Vitamin D3] 50 mcg (2,000 unit) Tablet 50 mcg PO DAILY meloxicam 15 mg tablet 15 mg PO DAILY Qty: 14 0RF Discharge Orders: Discharge ED (Routine); Ordered 03/31/25 Ordered By: Andreia Hyde Referrals: Janel Lyle MD [Primary Care Provider, Family Practice] Discharge Diet: Advance as tolerated Discharge Activity: Limit activity as instructed Patient Instructions: Opioid Safety, Pain Management, Patient Portal & Kellee Instructions Activity Restrictions/Additional Instructions: Please wear splint and keep on until evaluated and advised by Ortho Please return to the emergency department as discussed for signs and symptoms concerning of compartment syndrome such as numbness and tingling loss of sensation to the fingers fingers turning blue pain out of proportion to injury or any other concerns Please take medication as directed do not drive or operate heavy machinery or drink alcohol while taking [place]. 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
[2025-03-31 20:16] VITALS: BP 109/69; PULSE 76; O2SAT 94
--- NOTE | 2025-04-03 08:47 | DCPLANNER ---
messaged ortho for er f/u
== END 2025-03-31 20:17 | disposition home or self-care (01) ==
PROVIDERS: Emergency Provider Registered Nurse; PCP Family Medicine
DX: S46.211A Strain of muscle, fascia and tendon of other parts of biceps, right arm, initial encounter (principal); Z79.82 Long term (current) use of aspirin; F17.210 Nicotine dependence, cigarettes, uncomplicated; X58.XXXA Exposure to other specified factors, initial encounter
CPT/HCPCS: 29105; 29240; 73060; 73090; 76882; 93971; 99284; J9999

== ENCOUNTER → 2025-04-04 14:58 | Outpatient (BNVA) | payer OTHER, SELFPAY | PROVIDERS: PCP Family Medicine; Visit Provider Orthopaedic Surgery | DX: S46.111A Strain of muscle, fascia and tendon of long head of biceps, right arm, initial encounter (principal); X58.XXXA Exposure to other specified factors, initial encounter | CPT/HCPCS: 99204 ==

== ENCOUNTER 2025-04-07 09:32 | Outpatient (CLI) | payer OTHER, SELFPAY ==
--- NOTE | 2025-04-07 09:39 | MR_ITS ---
WS: [id number] MRI LUMBAR SPINE NONCONTRAST TECHNIQUE: Sagittal T1, T2 and STIR imaging. Axial T1 and T2 imaging. CLINICAL INFORMATION: THORACOGENIC SCOLIOSIS OF THORACIC REGION COMPARISON: MRI 2018 FINDINGS: Mild lumbar curve. No acute compression. Slight retrolisthesis L4 on L5 and L5 on S1. Disc desiccation worse at L4-L5 and L5-S1. Endplate Schmorl's nodes L3- L5. 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 Anterolisthesis C4 on C5. Additional segmentation anomalies C6-7. Mild central canal stenosis at C4-5. L1-L2: Mild facet arthropathy. Spinal canal and foramen are patent. L2-L3: Mild annular bulging. Slight narrowing the LEFT subarticular recess. Mild facet arthropathy. Spinal canal and foramen are patent. L3-L4: Mild annular bulging. Narrowing of the LEFT greater than RIGHT subarticular recess. Mild LEFT foraminal narrowing. Moderate facet arthropathy. L4-L5: Mild annular bulging with impingement of the traversing L5 nerve roots bilaterally in the subarticular recess. Mild RIGHT foraminal narrowing with slight impingement on the exiting RIGHT L4 nerve root. This is similar to previous. LEFT foramen is patent. L5-S1: Mild disc bulging with a shallow central protrusion. Moderate facet arthropathy. Spinal canal and foramen are patent. Visualized pelvic bony structures: Normal. Paravertebral soft tissues: Normal. Partially visualized infrarenal abdominal aortic aneurysm measuring approximately 3.2 cm. MR/MR lumbar spine wo con* [id number] IMPRESSION: 1. Mild lumbar curve. No acute compression. No high-grade central canal stenos is. 2. Annular bulging L3-4 with impingement on the LEFT greater than RIGHT subart icular recess. This appears progressed since 2018. Mild LEFT foraminal narrowin g at this level. 3. Disc bulging L4-5 impinges the traversing L5 nerve roots bilaterally in the subarticular recess. This appears slightly progressed since 2018. 4. Mild RIGHT L4-5 foraminal narrowing slightly impinges the far exiting RIGHT L4 nerve root. This appears stable since 2018. 5. Shallow central protrusion L5-S1 appears stable. 6. Moderate facet arthropathy L3-L5.
--- NOTE | 2025-04-07 10:30 | MRR_ITS ---
PROCEDURE INFORMATION: Exam: MR Right Upper Extremity Joint Without Contrast; Shoulder Exam date and time: 04/07/2025 9:57 AM Age: 69 years old Clinical indication: Patient states he fully extended his right arm at full force he felt a bad pain in his shoulder immediately after. Doi: 03/31/25 patient states his arm swelled up. Patient states he has a dull stabbing pain in his right bicep. ; Additional info: Bicep tear TECHNIQUE: Imaging protocol: Magnetic resonance imaging of the right upper extremity without contrast. Exam focused on the shoulder. COMPARISON: CR (UP EXM, ) 03/31/2025 5:44 PM, right upper extremity ultrasound 03/31/2025 FINDINGS: Limitations: Motion artifact. Bones/joints: Normal osseous alignment. No acute fracture. Mild subcortical bone marrow edema in the superolateral humeral head is present. Small glenohumeral joint effusion. Mild osteophyte formation, subcortical cyst formation and bone marrow edema in the distal clavicle and acromion is present. No acromioclavicular joint space widening or joint effusion. The articular cartilage appears intact. Glenoid labrum: There is a sub-labral foramen, a normal variant. Probable posterosuperior labral tear, not well assessed secondary to artifact. Bursae: Moderate fluid in the subcoracoid bursa is noted, with a small amount of fluid in the superior subscapularis recess. Supraspinatus tendon: Mild abnormal increased signal intensity in the supraspinatus tendon is identified. Infraspinatus tendon: Mild abnormal increased signal intensity within the infraspinatus tendon is noted with mild partial thickness undersurface tearing. Subscapularis tendon: Mild abnormal increased signal intensity within the subscapularis tendon is identified. Teres minor tendon: Unremarkable. No evidence of tear. Tendon of biceps brachii: A full-thickness tear of the biceps tendon long head within the bicipital groove is identified. [id number] edema surrounds the biceps tendon sheath extending inferiorly off the imaged view. Glenohumeral ligaments: Unremarkable. Soft tissues: Unremarkable. MR/MR shoulder RT wo con* [id number] IMPRESSION: 1. Full-thickness tear of the biceps tendon long head with edema surrounding the tendon sheath. 2. Glenohumeral joint and acromioclavicular joint primary osteoarthritic changes. 3. Small glenohumeral joint effusion. 4. Mild infraspinatus tendinosis with partial-thickness undersurface tearing. 5. Mild supraspinatus and subscapularis tendinosis. 6. Probable tear of the posterosuperior labrum with limited assessment secondary to artifact.. Consider MR arthrography for further evaluation as clinically indicated.
== END 2025-04-07 09:33 | disposition home or self-care (01) ==
LOC: RAD 09:34
PROVIDERS: PCP Family Medicine; Visit Provider Nurse Practitioner Family
DX: S46.211A Strain of muscle, fascia and tendon of other parts of biceps, right arm, initial encounter (principal); X58.XXXA Exposure to other specified factors, initial encounter; M85.611 Other cyst of bone, right shoulder; S46.111A Strain of muscle, fascia and tendon of long head of biceps, right arm, initial encounter; M19.011 Primary osteoarthritis, right shoulder; M75.111 Incomplete rotator cuff tear or rupture of right shoulder, not specified as traumatic; M67.813 Other specified disorders of tendon, right shoulder; M41.86 Other forms of scoliosis, lumbar region; M51.26 Other intervertebral disc displacement, lumbar region; M99.63 Osseous and subluxation stenosis of intervertebral foramina of lumbar region; M51.27 Other intervertebral disc displacement, lumbosacral region
CPT/HCPCS: 72148; 73221

== ENCOUNTER → 2025-04-20 09:23 | Outpatient (BNVA) | payer OTHER, SELFPAY | PROVIDERS: PCP Family Medicine; Visit Provider Orthopaedic Surgery | DX: S46.111A Strain of muscle, fascia and tendon of long head of biceps, right arm, initial encounter (principal); M75.111 Incomplete rotator cuff tear or rupture of right shoulder, not specified as traumatic; X58.XXXA Exposure to other specified factors, initial encounter | CPT/HCPCS: 99213 ==

== ENCOUNTER 2025-05-17 08:13 | Day surgery (SDC) | payer OTHER, SELFPAY ==
[2025-05-17] VITALS (10 sets, daily range): BP systolic 96–141; BP diastolic 55–81; PULSE 63–81; RESP 16–18; TEMP 36.1–36.6; O2SAT 93–96; BMI 30.4
--- NOTE | 2025-05-17 08:40 | ANES.PREANE2 ---
Pre-Anesthetic Assessment Height/Weight: Height 1.88 m Operation Date: 05/17/25 10:05 Proposed Procedures p Rotator Cuff Repair - Open(Right) - Norman Alberto MD s anchoring of the proximal portion of the biceps tendon to the proximal humerus(Right) - Norman Alberto MD Familial anesthetic complications: None Was Beta Andi taken within 24 hours: N/A Last intake: > 8 hrs Social Tobacco and No alcohol Exam alert, oriented x 3, clear to auscultation bilaterally and regular rate & rhythm Airway Dentition: caps and partials Pulmonary Chronic Obstructive Pulmonary Disease CV/HEM Peripheral Vascular Disease AAA repair Metabolic Hyperlipidemia Anesthetic Plan ASA status: 3 Anesthesia: General and Regional (specify below) Risk of > 500 ml blood loss (7ml/kg in children): No Medications/Allergies Home Medications ?Medication ?Instructions ?Recorded ?Confirmed ?Last Taken ?Type citalopram 40 mg tablet 20 mg PO DAILY 11/16/19 05/16/25 05/16/25 History cyanocobalamin (vitamin B-12) 1,000 mcg PO DAILY 02/20/22 05/16/25 05/16/25 History 1,000 mcg capsule ezetimibe 10 mg tablet 10 mg PO DAILY 02/20/22 05/16/25 05/16/25 History cholecalciferol (vitamin D3) 50 50 mcg PO DAILY 03/06/22 05/16/25 05/16/25 History mcg (2,000 unit) tablet (Vitamin D3) omeprazole 40 mg capsule,delayed 40 mg PO BID 06/20/22 05/16/25 05/16/25 History release ropinirole 0.5 mg tablet 0.5 mg PO TID 06/20/22 05/16/25 05/16/25 History furosemide 20 mg tablet (Lasix) 20 mg PO QAM #90 tabs 08/26/22 05/16/25 05/16/25 Rx potassium chloride 10 mEq 10 meq PO DAILY #90 tabs 08/26/22 05/16/25 05/16/25 Rx tablet,extended release urea 40 % topical cream 1 applic topical TID #198 grams 01/29/23 04/20/25 03/07/24 Rx tiotropium bromide 18 mcg capsule 1 cap inhalation DAILY #60 03/19/23 05/16/25 05/16/25 Rx with inhalation device (Spiriva inhalations with HandiHaler) rosuvastatin 40 mg tablet 40 mg PO DAILY #90 tabs 11/04/23 05/16/25 05/16/25 Rx hydrocodone 5 mg-acetaminophen 325 1 tab PO Q6H #20 tabs 03/31/25 05/16/25 Unknown Rx mg tablet Allergies Allergy/AdvReac Type Severity Reaction Status Date / Time prazosin Allergy Unknown Unknown Verified 04/20/25 09:25 [facility] Anesthesia Medical History (Updated 04/20/25 @ 12:42 by Norman Alberto MD) Anxiety History of traumatic brain injury PTSD (post-traumatic stress disorder) RLS (restless legs syndrome) Lower extremity edema Osteoarthritis AAA (abdominal aortic aneurysm) without rupture PVD (peripheral vascular disease) Surgical History S/P cervical spinal fusion S/P hernia repair S/P aorta repair S/P insertion of spinal cord stimulator Family History Mother Myocardial infarction Other Diabetes Social History Smoking and tobacco/nicotine status: current every day tobacco/nicotine user cigarettes Data Anesthesia Cardiac Studies: Echocardiogram 08/20/22 Anesthesia Procedures Nerve Block Nerve Block 1: Main Anesthesia: general anesthesia Time Out Performed: Yes Consent: requested by attending/covering physician, from patient, from other, risks and benefits reviewed and patient agrees to proceed Nerve block location: interscalene (L) Anesthesia monitors applied: pulse oximetry, EKG and BP cuff Nerve block position: semi sitting Anesthetic Used: ropivicaine 0.5% (25 ml) and with decadron (4 mg) Ultrasound used to: recognize landmarks, visualize and ID brachial plexus, in supraclavicular region and visualize and ID interscalene groove Nerve Stimulator Used?: No Interscalene/Femoral BLK: 2 stimuplex 22 g needle used for position and inplane approach, visualize local anesthetic spread and no vascular puncture identified Injection: neg aspiration of heme Patient Tolerated Procedure: well Complications: none
--- NOTE | 2025-05-17 09:50 | W.PM.OPSUD ---
Surgery/Procedure H&P Update DATE OF PROCEDURE: May 17, 2025 DATE H&P PERFORMED: 04/20/25 CHANGES TO PREVIOUS DOCUMENTATION: none PRIMARY INDICATION FOR PROCEDURE: Torn rotator cuff and torn biceps tendon on the right PLANNED PROCEDURE: Operation Date: 05/17/25 10:05 Proposed Procedures p Rotator Cuff Repair - Open(Right) - Norman Alberto MD s anchoring of the proximal portion of the biceps tendon to the proximal humerus(Right) - Norman Alberto MD
[2025-05-17] MEDS: ceFAZolin 2,000 mg SDV 2000 MG IVP (10:18)
--- NOTE | 2025-05-17 13:26 | ANE.PACU2 ---
Inpatient post-anesthesia follow up: Airway intact: Yes Vital signs: Temperature 97.0 F Pulse Rate 63 Respiratory Rate 18 Blood Pressure 117/68 Pulse Oximetry 96 Oxygen Delivery Me thod Room Air Oxygen Flow Rate Fraction of Inspir ed Oxygen Hydration adequate: Yes Nausea and vomiting: No Pain level: 1 Mental status: Baseline
--- NOTE | 2025-05-17 13:42 | PM.OP ---
Operative Report Date of procedure: May 17, 2025 Surgeon: Norman Alberto MD Procedure: Preoperative diagnosis: Internal derangement of the right shoulder with ruptured biceps tendon and torn rotator cuff Postoperative diagnosis: Ruptured biceps tendon at its insertion in the glenohumeral joint line, torn supraspinatus tendon, degenerative tearing anterior labrum, impingement of the acromion, extensive adhesions Procedure: Diagnostic right shoulder arthroscopy with debridement of rotator cuff, debridement of labrum, debridement of biceps stump. Mini open acromioplasty, adhesion lysis, rotator cuff repair. Surgeon: Norman Alberto MD Associate Professor Of Library Science: ELIZABETH Felix's assistance was necessary for positioning patient on the table, assistance during the procedure, wound closure, dressing placement and transfer the patient to the recovery room Anesthesia: General With preoperative scalene block EBL: 75 cc Indications: John is a 70-year-old white male was seen back in early March after injuring his shoulder and upper arm on 31 March. He had pain and some deformity of his bicep musculature. Subsequent MRI that was obtained demonstrated absence of the biceps tendon and the glenohumeral joint line as well as absence of the bicipital groove. He also demonstrated torn rotator cuff and other degenerative changes within the shoulder. Therefore at this time he was offered a diagnostic shoulder arthroscopy with all indicated procedures. It would be an attempt to anchor his biceps tendon for better use in the future. All risk benefits treatment alternatives are discussed with him he is agreeable to this at this time. Procedure: After obtaining her consent patient had preoperative scalene block administered in preop holding area. Patient was then taken to the operating room and placed on the operative table in a supine position. General anesthetic administered. Once good anesthesia was achieved patient was placed up in the beachchair position secured to the bed and padded appropriately. Right upper extremity and shoulder were prepped and draped usual fashion. After surgical timeout standard posterior portals made with #11 blade camera cast placed to the posterior portal into the glenohumeral joint line. Anterior working portal was also made just inferior to the clavicle at the same level. Evaluating and probing the area in the shoulder demonstrated significant fraying and tearing of the labrum and also the stump of the biceps tendon. There is no pull away of the labrum superiorly or in clearly or anteriorly at this point. All areas debrided with mechanical shaver down to stable cartilaginous base. Rotator cuff was also debrided. It was found to be tearing the supraspinatus region. Arthroscopy was abandoned at this point. Small anterior lateral incision was made for a mini open rotator cuff repair. Electrocautery was used after skin incision was made for hemostasis. Electrocautery was used to remove the deltoid from the anterior portion of the acromion. Acromioplasty was undertaken with a small microsagittal saw at this point. Bone fragments were removed with a rongeur. Significant amount of adhesions in burst was in the area. This is all debrided with these by digital sweeping over the dome of the humeral head and rotator cuff. Or direct dissection of the material out of the area. Biceps tendon was not palpable in the bicipital groove. However there was a tear of the supraspinatus tendon. This was freshened with a #15 blade and subsequently two 2.9 mm suture anchors were placed. Each of these were double arm. Therefore 4 horizontal mattress sutures were placed in the torn rotator cuff and used for repair. Once good fixation been achieved arm was forward flexed and palpating on down the bicipital groove found that the biceps tendon was adhered to the soft tissue just inferior to the bicipital groove and appeared to be well intact and scarred down and therefore no repair was necessary at this time. Shoulders washed with sterile irrigation. Deltoid reapproximated with Vicryl [id number] sutures. Subcutaneous tissue reapproximated 0 Vicryl interrupted sutures. Skin was closed skin camilla. Wounds are cleaned and dried dressed with Xeroform gauze sterile gauze dressing and adhesive occlusive dressing over the area. Patient was placed in abduction pillow and sling. Patient awakened transferred to cover in stable condition
== END 2025-05-17 13:30 | disposition home or self-care (01) ==
PROVIDERS: PCP Family Medicine; Visit Provider Orthopaedic Surgery
PROC: (CPT 23412; principal; 2025-05-17 09:45)
PROC: (CPT 29805; 2025-05-17 09:45)
PROC: (CPT 23412; 2025-05-17 09:45)
PROC: (CPT 23130; 2025-05-17 09:45)
DX: M24.9 Joint derangement, unspecified (principal); S46.211A Strain of muscle, fascia and tendon of other parts of biceps, right arm, initial encounter; S43.431A Superior glenoid labrum lesion of right shoulder, initial encounter; X58.XXXA Exposure to other specified factors, initial encounter; M75.101 Unspecified rotator cuff tear or rupture of right shoulder, not specified as traumatic; M75.41 Impingement syndrome of right shoulder; M75.01 Adhesive capsulitis of right shoulder; Z53.31 Laparoscopic surgical procedure converted to open procedure; J44.9 Chronic obstructive pulmonary disease, unspecified; I73.9 Peripheral vascular disease, unspecified; E78.5 Hyperlipidemia, unspecified; K21.9 Gastro-esophageal reflux disease without esophagitis; F41.9 Anxiety disorder, unspecified; F43.10 Post-traumatic stress disorder, unspecified; Z87.820 Personal history of traumatic brain injury; F17.210 Nicotine dependence, cigarettes, uncomplicated; Z79.82 Long term (current) use of aspirin
CPT/HCPCS: 23412; 29823; 23130; C1713; J0690; J1100; J1885; J2250; J2405; J2704; J2795; J3010; J3490; J7030; J9999

== ENCOUNTER → 2025-06-01 10:38 | Outpatient (BNVA) | payer OTHER, SELFPAY | PROVIDERS: PCP Family Medicine; Visit Provider Orthopaedic Surgery | DX: Z98.890 Other specified postprocedural states (principal) | CPT/HCPCS: 99024 ==

== ENCOUNTER → 2025-06-15 13:41 | Outpatient (BNVA) | payer OTHER, SELFPAY | PROVIDERS: PCP Family Medicine; Visit Provider Orthopaedic Surgery | DX: Z98.890 Other specified postprocedural states (principal) | CPT/HCPCS: 99024 ==

== ENCOUNTER 2025-06-29 10:56 | Outpatient (RCR) | payer OTHER, SELFPAY | END 2025-07-28 23:59 | disposition home or self-care (01) | LOC: SPT 10:56 | PROVIDERS: Visit Provider Orthopaedic Surgery | DX: Z98.890 Other specified postprocedural states (principal) | CPT/HCPCS: 97110; 97161; 97530 ==

== ENCOUNTER → 2025-07-10 14:07 | Outpatient (BNVA) | payer OTHER, SELFPAY | PROVIDERS: Visit Provider Orthopaedic Surgery | DX: Z98.890 Other specified postprocedural states (principal) | CPT/HCPCS: 99024 ==

== ENCOUNTER 2025-07-29 05:00 | Outpatient (RCR) | payer OTHER, SELFPAY | END 2025-08-27 23:59 | disposition home or self-care (01) | LOC: SPT 05:00 | PROVIDERS: Visit Provider Orthopaedic Surgery | DX: Z98.890 Other specified postprocedural states (principal) | CPT/HCPCS: 97110 ==

== ENCOUNTER → 2025-07-31 09:40 | Outpatient (BNVA) | payer OTHER, SELFPAY | PROVIDERS: Visit Provider Orthopaedic Surgery | DX: Z98.890 Other specified postprocedural states (principal) | CPT/HCPCS: 99024 ==

== ENCOUNTER 2025-08-28 05:00 | Outpatient (RCR) | payer OTHER, SELFPAY | END 2025-09-06 09:47 | disposition home or self-care (01) | LOC: SPT 05:00 | PROVIDERS: Visit Provider Orthopaedic Surgery | DX: Z47.89 Encounter for other orthopedic aftercare (principal) | CPT/HCPCS: 97110 ==